=== PATIENT | female | born 1970 | race Caucasian/White ===

== ENCOUNTER 2023-11-02 15:31 | Emergency (ER) | payer OTHER ==
[2023-11-02] MEDS ORDERED: INSULIN REGULAR (HUMAN) 100 UNIT/ML ONE ×2 (15:54→18:19)
[2023-11-02] MEDS ORDERED: ONDANSETRON 4 MG/2 ML VIAL ONE (15:54)
[2023-11-02] MEDS ORDERED: FAMOTIDINE 20 MG/2 ML VIAL IV ONE (15:55)
[2023-11-02] MEDS ORDERED: NA CHLORIDE 0.9% 1,000 ML ONE ×2 (15:55→18:20)
[2023-11-02 16:10] LABS: Absolute Basophils 0.1 K/uL (0-0.5); Absolute Eosinophils 0.1 K/uL (0-0.5); Absolute Lymphocytes (CBC) 1.6 K/uL (0.7-4.9); Absolute Monocytes 0.2 K/uL (0.1-1.3); Absolute Neutrophil 3.8 K/uL (1.8-8.0); Basophils % 1.6 % (0-1.3); Eosinophils % 2.4 % (0-4.4); Hematocrit 42.5 % (36.0-45.0); Hemoglobin 13.8 g/dL (12.0-15.0); Lymphocytes % 26.9 % (15.3-44.8); MCH 27.4 pg (27.0-35.0); MCHC 32.4 g/dL (32.0-36.0); MCV 84.7 fL (80-100); MPV 7.7 fL (7.6-11.3); Monocytes % 3.9 % (3.3-12.3); Neutrophils % 65.2 % (41.7-73.7); Nucleated Red Blood Cells % 0.1 % (0-0); Platelets 283 thou/uL (152-406); RBC Red Blood Cell Count 5.02 M/uL (3.86-4.86); Red Cell Distribution Width 14.3 % (12.1-15.2)
[2023-11-02 16:48] LABS: Blood Morphology Comment NOT SEEN (NOT SEEN); Platelet Estimate ADEQ; White Blood Cell Scan OK (OK)
[2023-11-02 17:02] LABS: ALT/SGPT 23 U/L (13-56); Albumin 3.5 g/dL (3.4-5.0); Albumin/Globulin Ratio 0.8 (1.1-1.8); Alkaline Phosphatase 94 U/L (45-117); Anion Gap 10.1 mEq/L (5.0-15.0); BUN Blood Urea Nitrogen 19 mg/dL (7-18); Bicarbonate 26 mEq/L (21-32); Bilirubin Total 0.3 mg/dL (0.2-1.0); Globulin 4.6 g/dL (2.3-3.5); Glomerular Filtration Rate 60 ml/min (=/>90); Magnesium 2.5 mg/dL (1.6-2.4); Potassium 4.1 mEq/L (3.5-5.1); Protein, Total 8.1 g/dL (6.4-8.2); Sodium Level 131 mEq/L (136-145)
[2023-11-02 17:03] LABS: AST/SGOT < 10 U/L (15-37); Bilirubin Direct < 0.2 mg/dL (0-0.2); Bilirubin Indirect, Calculated 0.1 mg/dL (0.2-0.8); Troponin High Sensitivity < 3.0 pg/mL (<58.9)
[2023-11-02 17:04] LABS: Glucose Level 638 mg/dL (74-106)
[2023-11-02] MEDS ORDERED: POTASSIUM 25 MEQ EFFERV TAB ONE (18:19)
--- NOTE | 2023-11-02 20:37 | ER ---
Nurse's Notes [facility] Name: Rachel Saldaña Age: 53 yrs Sex: Female : 1970 Arrival Date: 11/02/2023 Time: 15:31 Bed 14 Private MD: Diagnosis: Diabetes mellitus due to underlying condition with hyperglycemia;Diarrhea, unspecified;Nausea Presentation: 11/01 15:34 Chief complaint: EMS states: N/V, diarrhea, and fatigue x2 days. Glucose readings for rs5 EMS read "high", Glucometer max out at 600. Coronavirus screen: At this time, the client does not indicate any symptoms associated with coronavirus-19. Ebola Screen: No symptoms or risks identified at this time. Initial Sepsis Screen: Does the patient meet any 2 criteria? No. Patient's initial sepsis screen is negative. Does the patient have a suspected source of infection? No. Patient's initial sepsis screen is negative. Risk Assessment: Do you want to hurt yourself or someone else? Patient reports no desire to harm self or others. Onset of symptoms was November 02, 2023. 15:34 Method Of Arrival: EMS: [facility] rs5 15:34 Acuity: JESSICA 3 rs5 Historical: - Allergies: 15:36 Augmentin; rs5 15:36 Narcan; rs5 - PMHx: 15:36 Diabetes mellitus; Gastroesophageal reflux disease; Hepatitis; rs5 - PSHx: 15:36 right toe amputation; rs5 - Immunization history:: Adult Immunizations up to date. - Infectious Disease History:: Denies. - Social history:: Smoking status: Patient denies any tobacco usage or history of. Screenin:34 [facility] ED Fall Risk Assessment (Adult) History of falling in the last 3 months, rs5 including since admission No falls in past 3 months (0 pts) Confusion or Disorientation No (0 pts) Intoxicated or Sedated No (0 pts) Impaired Gait Yes (1 pt) Mobility Assist Device Used Yes (1 pt) Altered Elimination No (0 pt) Score/Fall Risk Level 0 - 2 = Low Risk Oriented to surroundings, Maintained a safe environment. Abuse screen: Denies threats or abuse. Nutritional screening: No deficits noted. Tuberculosis screening: No symptoms or risk factors identified. Assessment: 15:48 General: Appears in no apparent distress. Behavior is calm, cooperative. Pain: al5 Complains of pain in abdomen, throat Pain currently is 4 out of 10 on a pain scale. Neuro: Level of Consciousness is awake, alert, obeys commands, Oriented to person, place, time, situation. Cardiovascular: Capillary refill Patient's skin is warm and dry. Respiratory: Airway is patent Trachea midline Respiratory effort is even, unlabored, Respiratory pattern is regular, symmetrical. GI: Abdomen is round non-distended. GI: Reports indigestion, Pain is 4 out of 10 on a pain scale. fatigue x2 days. : No deficits noted. No signs and/or symptoms were reported regarding the genitourinary system. EENT: No deficits noted. No signs and/or symptoms were reported regarding the EENT system. Derm: Skin is intact, Skin is pink, warm \\T\\ dry. normal, Skin temperature is warm. 16:30 Reassessment: Patient appears in no apparent distress at this time. No changes from al5 previously documented assessment. Patient and/or family updated on plan of care and expected duration. Pain level reassessed. Patient is alert, oriented x 3, equal unlabored respirations, skin warm/dry/pink. 17:37 Reassessment: Patient appears in no apparent distress at this time. No changes from al5 previously documented assessment. Patient and/or family updated on plan of care and expected duration. Pain level reassessed. Patient is alert, oriented x 3, equal unlabored respirations, skin warm/dry/pink. 19:08 Reassessment: Patient appears in no apparent distress at this time. Patient and/or jb4 family updated on plan of care and expected duration. Pain level reassessed. Patient is alert, oriented x 3, equal unlabored respirations, skin warm/dry/pink. 20:00 Reassessment: Patient appears in no apparent distress at this time. Patient and/or jb4 family updated on plan of care and expected duration. Pain level reassessed. Patient is alert, oriented x 3, equal unlabored respirations, skin warm/dry/pink. 20:59 Reassessment: Patient appears in no apparent distress at this time. Patient and/or jb4 family updated on plan of care and expected duration. Pain level reassessed. Patient is alert, oriented x 3, equal unlabored respirations, skin warm/dry/pink. Vital Signs: 15:30 BP 154 / 110; Pulse 71; Resp 18; Temp 98.1; Pulse Ox 98% on R/A; Weight 99.79 kg; al5 Height 5 ft. 3 in. ; Pain 4/10; 15:34 BP 158 / 78; Pulse 71; Resp 17; Pulse Ox 99% on R/A; rs5 16:30 BP 138 / 107; Pulse 68; Resp 16; Pulse Ox 98% on R/A; al5 17:00 BP 143 / 90; Pulse 64; Resp 16; Pulse Ox 100% on R/A; al5 17:30 BP 94 / 73; Pulse 72; Resp 16; Pulse Ox 100% on R/A; al5 19:00 BP 134 / 97; Pulse 63; Resp 16; Pulse Ox 100% on R/A; jb4 15:30 Body Mass Index 38.97 (99.79 kg, 160.02 cm) al5 15:30 Pain Scale: Adult al5 ED Course: 15:34 Patient arrived in ED. rs5 15:34 Salomon Pritchard MD is Attending Physician. rt 15:34 Patient has correct armband on for positive identification. Bed in low position. Call rs5 light in reach. Side rails up X2. 15:36 Ellis Garcia PA is PHCP. rt 15:36 Triage completed. rs5 15:37 Curtis Harris MD is Attending Physician. cp 15:46 Mariam Constantino, DIANELYS is Primary Nurse. al5 15:50 Arm band placed on left wrist. Patient placed in the treatment room, in view of staff al5 members. 15:50 No provider procedures requiring assistance completed. al5 16:03 Missed attempt(s): 20 gauge in right forearm. Bleeding controlled, band aid applied, ll1 catheter tip intact. 16:03 Missed attempt(s): 20 gauge in left antecubital area. Bleeding controlled, band aid ll1 applied, catheter tip intact. 19:08 Bruce Machado, RN is Primary Nurse. jb4 20:59 Provided Education on: discharge instructions.. jb4 20:59 IV discontinued, intact, bleeding controlled, No redness/swelling at site. Pressure jb4 dressing applied. Administered Medications: 16:45 Drug: NS 0.9% IV 1000 ml IV at 1 bolus Per protocol; 1000 mL bolus Route: IV; Rate: 1 al5 bolus; Site: left forearm; 16:45 Drug: Ondansetron IVP 4 mg IVP once; over 2 minutes Route: IVP; Site: left forearm; al5 16:45 Drug: Famotidine IVP 20 mg IVP once; dilute with 10 mL 0.9% NaCl; give over 2 minutes al5 Route: IVP; Site: left forearm; 16:46 Drug: Insulin Regular Human IVP 10 units IVP once; if blood glucose greater than 300 al5 {Co-Signature: heather (Tyrone Rowland RN).} Route: IVP; Site: left forearm; 18:26 Drug: Insulin Regular Human IVP 10 units IVP once {Co-Signature: heather (Tyrone Rowland RN).} Route: IVP; Site: left forearm; 18:28 Drug: NS 0.9% IV 1000 ml IV at 1 bolus Per protocol; 1000 mL bolus Route: IV; Rate: 1 al5 bolus; Site: left forearm; 18:29 Drug: Potassium PO Effervescent Tablet 50 mEq PO once; dissolve in 4 ounces of water or al5 juice Route: PO; 20:59 Drug: metFORMIN PO 1000 mg PO once; with meal or snack Route: PO; jb4 Medication: 15:38 VIS not applicable for this client. rs5 Point of Care Testing: Blood Glucose: 19:52 Blood Glucose: 249 mg/dL; jb4 Ranges: Outcome: 20:36 Discharge ordered by . cp 20:59 Discharged to home ambulatory, jb4 20:59 Condition: stable 20:59 Discharge instructions given to patient, Instructed on discharge instructions, follow up and referral plans. medication usage, Demonstrated understanding of instructions, follow-up care, medications, Prescriptions given X 6 21:01 Patient left the ED. jb4 Signatures: Ellis Garcia PA PA cp Bryson, James RN RN jb4 Ben Ro RN RN ll1 Salomon Pritchard MD MD rt Tyrone Rowland RN RN rs5 Mariam Constantino RN RN al5 Tyrone Rowland RN rs5
--- NOTE | 2023-11-02 20:37 | EDPHYS ---
Physician Documentation [facility] Name: Rachel Saldaña Age: 53 yrs Sex: Female : 1970 Arrival Date: 11/02/2023 Time: 15:31 Bed 14 Private MD: ED Physician Curtis Harris HPI: 11/01 15:40 This 53 yrs old Female presents to ER via EMS with complaints of Nausea/Vomiting, cp Abdominal Cramping. 15:40 The patient presents to the emergency department with nausea, vomiting, that is cp intermittent, diarrhea, that is intermittent. Onset: The symptoms/episode began/occurred 2 day(s) ago. Possible causes: elevated blood glucose level. patient reports recent move to [facility]. ran out of prescribed Metformin and insulin about 1 week ago. Associated signs and symptoms: Pertinent negatives: fever, chest pain. Severity of symptoms: in the emergency department the symptoms are unchanged despite home interventions. Historical: - Allergies: 15:36 Augmentin; rs5 15:36 Narcan; rs5 - PMHx: 15:36 Diabetes mellitus; Gastroesophageal reflux disease; Hepatitis; rs5 - PSHx: 15:36 right toe amputation; rs5 - Immunization history:: Adult Immunizations up to date. - Infectious Disease History:: Denies. - Social history:: Smoking status: Patient denies any tobacco usage or history of. ROS: 15:45 Constitutional: Negative for body aches, chills, fever, cp 15:45 Eyes: Negative for injury, pain, redness, and discharge, cp 15:45 ENT: Negative for drainage from ear(s), ear pain, sore throat, difficulty swallowing, difficulty handling secretions, 15:45 Cardiovascular: Negative for chest pain, 15:45 Respiratory: Negative for cough, shortness of breath, wheezing, 15:45 Abdomen/GI: Positive for nausea and vomiting, diarrhea, Negative for active vomiting, 15:45 : Negative for urinary symptoms, 15:45 Skin: Negative for cellulitis, rash, 15:45 All other systems are negative, Exam: 15:50 Constitutional: The patient appears in no acute distress, alert, awake, cp non-diaphoretic, non-toxic, well developed, well nourished, obese, 15:50 Head/Face: Normocephalic, atraumatic. cp 15:50 Eyes: Periorbital structures: appear normal, Conjunctiva: normal, no exudate, no injection, Sclera: no appreciated abnormality, Lids and lashes: appear normal, bilaterally, 15:50 ENT: External ear(s): are unremarkable, Nose: is normal, Mouth: Lips: moist, Oral mucosa: pink and intact, moist, Posterior pharynx: is normal, airway is patent, no erythema, no exudate, 15:50 Chest/axilla: Inspection: normal, 15:50 Cardiovascular: Rate: normal, Rhythm: regular, Edema: is not appreciated, JVD: is not appreciated, 15:50 Respiratory: the patient does not display signs of respiratory distress, Respirations: normal, no use of accessory muscles, no retractions, labored breathing, is not present, Breath sounds: are clear throughout, no decreased breath sounds, no stridor, no wheezing, 15:50 Abdomen/GI: Inspection: abdomen appears normal, Bowel sounds: active, all quadrants, Palpation: abdomen is soft and non-tender, in all quadrants, 15:50 Back: CVA tenderness, is absent, 15:50 Neuro: Orientation: to person, place \T\ time. Mentation: is normal, Motor: moves all fours, strength is normal, Sensation: is normal, 16:33 ECG was reviewed by the Attending Physician. Vital Signs: 15:30 BP 154 / 110; Pulse 71; Resp 18; Temp 98.1; Pulse Ox 98% on R/A; Weight 99.79 kg; al5 Height 5 ft. 3 in. ; Pain 4/10; 15:34 BP 158 / 78; Pulse 71; Resp 17; Pulse Ox 99% on R/A; rs5 16:30 BP 138 / 107; Pulse 68; Resp 16; Pulse Ox 98% on R/A; al5 17:00 BP 143 / 90; Pulse 64; Resp 16; Pulse Ox 100% on R/A; al5 17:30 BP 94 / 73; Pulse 72; Resp 16; Pulse Ox 100% on R/A; al5 19:00 BP 134 / 97; Pulse 63; Resp 16; Pulse Ox 100% on R/A; jb4 15:30 Body Mass Index 38.97 (99.79 kg, 160.02 cm) al5 15:30 Pain Scale: Adult al5 MDM: 15:34 Patient medically screened. rt 20:35 Data reviewed: vital signs, nurses notes, lab test result(s), and as a result, I will cp discharge patient. 20:35 Differential diagnosis: Nonspecific abd pain, gastritis, viral gastroenteritis, cp gastroenteritis, DKA, uti. I considered the following discharge prescriptions or medication management in the emergency department Medications were administered in the Emergency Department. See MAR. Independent interpretation of the following test(s) in the Emergency Department EKG: See my EKG interpretation above. Counseling: I had a detailed discussion with the patient and/or guardian regarding the historical points, exam findings, and any diagnostic results supporting the discharge/admit diagnosis, lab results, the need for outpatient follow up, for definitive care, a family practitioner, to return to the emergency department if symptoms worsen or persist or if there are any questions or concerns that arise at home. Response to treatment: the patient's symptoms have markedly improved after treatment, and as a result, I will discharge patient. 11/01 15:39 Order name: Basic Metabolic Panel; Complete Time: 18:01 11/01 20:05 Interpretation: Normal except: NA 131; GLUC 638; BUN 19; CRE 1.12; GFR 60. 11/01 15:39 Order name: CBC with Diff; Complete Time: 18:01 11/01 15:39 Order name: LFT's; Complete Time: 18:01 11/01 15:39 Order name: Magnesium; Complete Time: 18:01 11/01 15:39 Order name: Troponin HS; Complete Time: 18:01 11/01 15:54 Order name: Glucose, Ancillary Testing; Complete Time: 18:01 EDMN 11/01 16:17 Order name: CBC Smear Scan; Complete Time: 18:01 EDMN 11/01 17:43 Order name: Glucose, Ancillary Testing; Complete Time: 18:01 EDMS 11/01 20:03 Order name: Glucose, Ancillary Testing; Complete Time: 20:04 EDMN 11/01 20:04 Interpretation: Reviewed. 11/01 15:39 Order name: Cardiac monitoring; Complete Time: 16:35 11/01 15:39 Order name: EKG - Nurse/Tech; Complete Time: 15:47 11/01 15:39 Order name: IV Saline Lock; Complete Time: 16:35 11/01 15:39 Order name: Labs collected and sent; Complete Time: 16:03 cp 11/01 15:39 Order name: O2 Per Protocol; Complete Time: 15:47 cp 11/01 15:39 Order name: O2 Sat Monitoring; Complete Time: 15:47 cp 11/01 15:39 Order name: Accucheck Blood Glucose; Complete Time: 15:47 cp 11/01 16:15 Order name: Labs - recollect needed: GREEN TOP ONLY; Complete Time: 17:10 hb 11/01 19:44 Order name: Accucheck Blood Glucose; Complete Time: 20:01 cp 11/01 20:05 Order name: PO challenge; Complete Time: 20:07 cp EC:33 Rate is 56 beats/min. Rhythm is regular. NM interval is normal. QRS interval is normal. cp QT interval is normal. T waves are Inverted in leads III, aVR. Interpreted by me. Reviewed by me. Administered Medications: 16:45 Drug: NS 0.9% IV 1000 ml IV at 1 bolus Per protocol; 1000 mL bolus Route: IV; Rate: 1 al5 bolus; Site: left forearm; 16:45 Drug: Ondansetron IVP 4 mg IVP once; over 2 minutes Route: IVP; Site: left forearm; al5 16:45 Drug: Famotidine IVP 20 mg IVP once; dilute with 10 mL 0.9% NaCl; give over 2 minutes al5 Route: IVP; Site: left forearm; 16:46 Drug: Insulin Regular Human IVP 10 units IVP once; if blood glucose greater than 300 al5 {Co-Signature: rs5 (Tyrone Rowland RN).} Route: IVP; Site: left forearm; 18:26 Drug: Insulin Regular Human IVP 10 units IVP once {Co-Signature: rs5 (Tyrone Rowland RN).} Route: IVP; Site: left forearm; 18:28 Drug: NS 0.9% IV 1000 ml IV at 1 bolus Per protocol; 1000 mL bolus Route: IV; Rate: 1 al5 bolus; Site: left forearm; 18:29 Drug: Potassium PO Effervescent Tablet 50 mEq PO once; dissolve in 4 ounces of water or al5 juice Route: PO; 20:59 Drug: metFORMIN PO 1000 mg PO once; with meal or snack Route: PO; jb4 Point of Care Testing: Blood Glucose: 19:52 Blood Glucose: 249 mg/dL; jb4 Ranges: Critical Glucose Levels:Adult <50 mg/dl or >400 mg/dl <40 mg/dl or >180 mg/dl Disposition: 11/02 07:03 Co-signature as Attending Physician, Curtis Harris MD I reviewed the patient's care rn provided by the Advanced Practice Provider and agree with the diagnosis and treatment plan. Disposition Summary: 11/02/23 20:36 Discharge Ordered Notes: Location: Home cp Problem: chronic cp Symptoms: have improved cp Condition: Stable cp Diagnosis - Diabetes mellitus due to underlying condition with hyperglycemia cp - Diarrhea, unspecified cp - Nausea cp Followup: cp - With: Private Physician - When: 2 - 3 days - Reason: Recheck today's complaints Discharge Instructions: - Discharge Summary Sheet cp - Food Choices to Help Relieve Diarrhea, Adult cp - Diarrhea, Adult cp - Hyperglycemia cp - Nausea, Adult cp - Daily Diabetes Mellitus Record cp - Blood Glucose Monitoring, Adult cp - Diabetes Mellitus and Nutrition, Adult cp Forms: - Medication Reconciliation Form cp - Antibiotic Education cp - Prescription Opioid Use cp - Patient Portal Instructions cp - Leadership Thank You Letter cp Prescriptions: - Lantus U-100 Insulin 100 unit/mL Subcutaneous solution - inject 40 unit SUBCUTANEOUS route daily; 10 milliliter; Refills: 0, Product cp Selection Permitted - GLUCOMETER - use 1 application NOT APPLICABLE route after meals and before bedtime; 1 unit; cp Refills: 0, Product Selection Permitted - GLUCOMETER TEST STRIPS - use 1 application NOT APPLICABLE route as directed; 1 Pack; Refills: 0, Product cp Selection Permitted - DIABETIC SYRINGES - inject 1 application SUBCUTANEOUS route as directed; 100 unit; Refills: 0, cp Product Selection Permitted - Protonix 40 mg Oral Tablet - take 1 tablet ORAL route once daily; 30 tablet; Refills: 0, Product Selection cp Permitted - Metformin 1,000 mg Oral tablet - take 1 tablet ORAL route every 12 hours with morning and evening meals; 60 cp tablet; Refills: 0, Product Selection Permitted Signatures: Dispatcher [employer] EDMS Curtis Harris MD MD rn Page, Corey, PA PA cp Snow Velazquez RN RN Bruce Machado RN RN jb4 Salomon Pritchard MD MD rt Tyrone Rowland RN RN rs5 Mariam Constantino RN RN al5 Tyrone Rowland RN rs5 Corrections: (The following items were deleted from the chart) 11/01 15:39 15:39 BASIC METABOLIC PANEL+C.LAB.BRZ ordered. EDMS EDMS 15:39 15:39 CBC+H.LAB.BRZ ordered. EDMS EDMS 15:39 15:39 HEPATIC FUNCTION+C.LAB.BRZ ordered. EDMS EDMS 15:39 15:39 MAGNESIUM+C.LAB.BRZ ordered. EDMS EDMS 15:39 15:39 Troponin High Sensitivity+C.LAB.BRZ ordered. EDMS EDMS
[2023-11-02] MEDS ORDERED: METFORMIN HCL 500 MG TAB ONE (20:46)
[2023-11-02 21:21] VITALS: BP 134/97; O2SAT 100
--- NOTE | 2023-11-04 10:32 | EKG ---
Test Date: 2023-11-02 Test Time: 16:25:32 Publicist: ADALID MEASUREMENT RESULTS: Intervals: Rate: 56 CA: 136 QRSD: 82 QT: 472 QTc: 455 Benson: P: 36 CA: 136 QRS: 17 T: 2 INTERPRETIVE STATEMENTS: Sinus bradycardia with sinus arrhythmia Otherwise normal ECG No previous ECG available for comparison Electronically Signed On 11-04-23 10:31:16 CDT by Keegan Rain
== END 2023-11-02 21:01 | disposition home or self-care (01) ==
LOC: ER 15:31
DX: E11.65 Type 2 diabetes mellitus with hyperglycemia (principal); R19.7 Diarrhea, unspecified
CPT/HCPCS: 93005; 85025; 80048; 36415; 83735; 82947 ×3; 80076; 84484; 96375; 96374; 99284; J2405; J7030 ×2

== ENCOUNTER 2024-03-12 00:58 | Emergency (ER) | payer OTHER ==
--- OUTSIDE RECORDS SUMMARY | 2024-03-12 01:03 | XMS REPORT | Continuity of Care Document ---
Author Name Unknown Address [address] [facility] [address] [place] [address] [facility] thconnect Address [address] [facility] [place] [address] Care Team Providers Care Manager Requirements Name Role Phone Pcp, Patient Does Not Have A Primary Care Physic kayla Dany Kerr MD Attending Clinician [phone] Tuan Obrien Attending Clinician UnavailMariela Fisher DO Attending Clinician [phone] Sayra Giordano DO Attending Clinician [phone] Ismael Olivo MD Attending Clinician [phone] Kwadwo Diop MD Attending Clinician [phone] Melody Loaiza Attending Clinician Unavailable MARY JANE SKINNER Attending Clinician Mary Jane Gilbert MD Attending Clinician [phone] Physician, No Primary or Family Admitting Clinic kayla Unavailable Ismael Olivo MD Admitting Clinician [phone] Melody Loaiza Admitting Clinician Unavailable Payers Payer Name Policy Type Policy Number Effective Date Expirati on Date Source Problems Condition Name Condition Details Condition Category Status Onset Date Resolution Date Last Treatment Date Treating Clinician Comments Source Left breast abscess Left breast abscess Disease Active 09-03 00:00: 00 [facility] Homeless Homeless Disease Active 09-03 00:00: 00 [facility] Medically noncomplia nt Medically noncomplia nt Disease Active 09-03 00:00: 00 [facility] Diabetes mellitus of other type without complicati on, unspecifie d whether terminal clerk insulin use Diabetes mellitus of other type without complicati on, unspecifie d whether terminal clerk insulin use Disease Active 09-03 00:00: 00 [facility] Mastitis Mastitis Disease Active 09-03 00:00: 00 [facility] Allergies, Adverse Reactions, Alerts Allergy Name Allergy Type Status Severity Reaction(s) Onset Date Inactive Date Treating Clinician Comments Source onion FA Active [facility] 08-[facility] clavulan ic acid DA Active HI HIVES 07-24 00:00: 00 [facility] amoxicil yessy DA Active HI HIVES 3 00:00: 00 [facility] AMOXICIL YESSY-POT CLAVULAN ATE DRUG Active Hives 2022-04 0- 00:00: 00 [facility] Amoxicil yessy-Pot Clavulan ate Propensi ty to adverse reaction s Active Hives 2022-04 0-22 00:00: 00 [facility] Social History Social Habit Start Date Stop Date Quantity Comments [facility] of [facility] use Cigarette Smoker [facility] Alcoholic beverage intake 2023-09-04 00:00:00 2023-09-04 00:00:00 Lifetime non-drinker (finding) [facility] History of Social function 2023-09-04 00:00:00 2023-09-04 00:00:00 [facility] Sex assigned at 1970 00:00:00 1970 00:00:00 [facility] Smoking Status Start Date Stop Date Source Tobacco smoking consumption unknown [facility] Occasional tobacco smoker 2023-09-04 00:00:00 [facility] Medications Ordered Medication Name Filled Medication Name Start Date Stop Date Current Medication? Ordering Clinician Indication Dosage Frequency Signature (SIG) Comments Components Source insulin glargine (LANTUS U-100) injection 5 Units 09-05 02:00: 00 Yes 5U [facility] miconazole nitrate (DESENEX) 2 % powder 09-04 16:00: 00 Yes Topical, BID, First dose on Sun09/05/23 at 1100, Until Discontinu ed, Routine [facility] glucagon (GLUCAGEN DIAGNOSTIC KIT) injection 1 mg 09-04 15:44: 02 Yes 1mg [facility] dextrose 50 % in water (D50W) injection 25 mL 09-04 15:44: 02 Yes 25mL [facility] famotidine (PEPCID) 40 mg tablet 09-04 14:19: 59 Yes 40mg Take 1 tablet by mouth in the morning. [facility] polyethylen e glycol 3350 powder 17 g 09-04 14:00: 00 Yes 17g 17 g, Oral, BID, First dose (after last modificati on) on Sun09/05/23 at 0900, Until Discontinu ed, Routine [facility] enoxaparin (LOVENOX) injection 40 mg 09-04 14:00: 00 Yes 40mg [facility] lanolin alcohol-mo- w.pet-ceres (EUCERIN) cream 09-04 13:55: 46 Yes Topical, PRN, Starting on Sun09/05/23 at 0855, Until Discontinu ed, Routine, Dermatitis /Rash, Itching [facility] sennosides (SENOKOT) tablet 8.6 mg 09-04 13:00: 00 Yes 8.6mg 8.6 mg, Oral, BID, First dose on Sun09/05/23 at 0800, Until Discontinu ed, [facility] - Lispro (HumaLOG) 09-04 11:45: 00 Yes Subcutaneo us, Q4H, First dose (after last modificati on) on Sun09/05/23 at 0645, Until Discontinu ed, Routine [facility] Sliding Scale Insulin - Lispro (HumaLOG) 09-04 09:00: 00 09-04 11:30 :49 No Subcutaneo us, Q4H, First dose (after last modificati on) on Sun09/05/23 at 0400, Until Discontinu ed, Routine [facility] polyethylen e glycol 3350 powder 17 g 09-04 05:45: 00 09-04 13:57 :27 No 17g 17 g, Oral, DAILY, First dose (after last modificati on) on Sun09/05/23 at 0045, Until Discontinu ed, Routine [facility] lactated ringers IV infusion 1,000 mL 09-04 05:45: 00 09-04 07:38 :29 No 1000mL at 500 mL/hr, 1,000 mL, Intravenou s, ONCE, 1 dose, On Sun09/05/23 at 0045, Routine [facility] pantoprazol e (PROTONIX) EC tablet 40 mg 09-04 05:30: 00 Yes 40mg 40 mg, Oral, DAILY, First dose on Sun09/05/23 at 0030, Until Discontinu ed, Routine [facility] insulin glargine (LANTUS U-100) injection 8 Units 09-04 04:45: 00 Yes 8U 8 Units, Subcutaneo us, QHS, First dose (after last modificati on) on Sun09/04/23 at 2345, Until Discontinu ed, Routine [facility] acetaminoph en-codeine (TYLENOL #3) 300-30 mg tablet 1 tablet 09-04 03:31: 27 09-06 03:30 :27 No 1{tbl} 1 tablet, Oral, Q6HPRN, Starting on Sun09/04/23 at 2231, Until Sun09/06/23 at 2230, Routine, Pain (scale 4-6) [facility] acetaminoph en (TYLENOL) tablet 650 mg 09-04 03:31: 14 Yes 650mg 650 mg, Oral, Q6HPRN, Starting on Sun09/04/23 at 2231, Until Discontinu ed, Routine, Pain (scale 1-3) [facility] vancom[facility] (VANCOCIN) 1,000 mg in NaCl 0.9% (NS) 250 mL VIAL-MATE IV piggyback 09-04 03:00: 00 09-04 04:15 :00 No 1000mg 1,000 mg, IV Piggyback, ONCE, 1 dose, On Sun09/04/23 at 2200, Administer over 60 Minutes, 250 mL, Reason for Anti-Infec tive: Empiric Therapy for Suspected Infection, Empiric Therapy Site: Skin / Soft tissue, Duration of therapy: Once (ED) [facility] famotidine (PEPCID AC) tablet 20 mg 09-04 02:51: 00 09-04 03:10 :00 No 20mg 20 mg, Oral, ONCE NOW, 1 dose, On Sun09/04/23 at 2200, BAUTISTA [facility] Blood-Gluco se Meter (ACCU-CHEK GUIDE GLUCOSE METER) [facility] 09-04 00:00: 00 Yes [id number] 9109 Use as directed [facility] lancets 33 gauge Misc 09-04 00:00: 00 Yes [id number] 9109 Use as directed [facility] blood sugar diagnostic (ACCU-CHEK GUIDE TEST STRIPS) strip 09-04 00:00: 00 Yes [id number] 9109 Use as directed [facility] Insulin [place], Disposable, (BD INSULIN PEN NEEDLE UF) 31 gauge x 5/16" Ndle 09-04 00:00: 00 Yes [id number] 9109 Use as directed [facility] Insulin Glargine 100 unit/mL (3 mL) injection 09-04 00:00: 00 Yes [id number] 9109 5U inject 5 Units under the skin every morning. [facility] clindamycin 300 mg capsule 09-04 00:00: 00 09-12 04:59 :00 No [id number] 300mg Take 1 capsule by mouth 4 (four) times daily for 7 days. [facility] insulin detemir U-100 (LEVEMIR U-100 INSULIN) 100 unit/mL injection 09-04 00:00: 00 09-04 00:00 :00 No [id number] 6U inject 6 Units under the skin at bedtime for 30 days. [facility] maalox:diph enhydrAMINE :lidocaine 2 % viscous 1:1:1 (FIRST-MOUT HWASH BLM) oral suspension 15 mL 09-03 20:45: 00 09-03 19:54 :00 No 15mL 15 mL, Oral, ONCE, 1 dose, On Sun09/04/23 at 1545, Routine [facility] metFORMIN (GLUCOPHAGE ) tablet 500 mg 09-03 18:30: 00 09-03 18:30 :00 No 500mg 500 mg, Oral, ONCE, 1 dose, On Sun09/04/23 at 1330[facility] (LANTUS U-100) injection 15 Units 2022-04 18:30: 00 02-18 17:41 :00 No 15U 15 Units, Subcutaneo us, ONCE, 1 dose, On 02/18/23 at 1330, Routine [facility] insulin regular human (HUMULIN R) injection 10 Units 2022-04 18:30: 00 02-18 17:40 :00 No 10U 10 Units, Subcutaneo us, ONCE, 1 dose, On 02/18/23 at 1330, Routine
Indicatio n for insulin: Hyperglyce heavenly [facility] acetaminoph en (TYLENOL) tablet 650 mg 2022-04 17:45: 00 02-18 17:44 :00 No 650mg 650 mg, Oral, ONCE, 1 dose, On 02/18/23 at 1245, BAUTISTA [facility] dextrose 10% (D10W) bolus infusion 250 mL 2022-04 17:31: 56 Yes 250mL 250 mL, IV Infusion, PRN - SEE INSTRUCTIO NS, Administer over 60 Minutes, Other, If blood glucose is < or = 70 mg/dL and patient is unable to swallow or has mental status changes, Starting on 02/18/23 at 1231
If blood glucose is < or = 70 mg/dL and patient is unable to swallow or has mental status changes (Give glucagon order if patient needs fluid restrictio n): IF IV access available: Dextrose 10%. 1. 125 mL (? bag) of D10W IV infusion - equivalent to 12.5 g dextrose 2. Blood glucose - draw blood glucose 15 minutes after D10W Administra tion. 3. If blood glucose is < 80 mg/dL, repeat.
[facility] glucagon (GLUCAGEN DIAGNOSTIC KIT) injection 1 mg 2022-04 17:31: 52 Yes 1mg 1 mg, Intramuscu lar, PRN, Starting on Sun02/18/23 at 1231, Until Discontinu ed, BAUTISTA, Blood Glucose < or = 70 mg/dL and patient is NPO, unable to swallow or has mental changes. [facility] insulin regular human (HUMULIN R) injection 15 Units 2022-04 16:45: 00 02-18 16:07 :00 No 15U 15 Units, Subcutaneo us, ONCE NOW, 1 dose, On Sun02/18/23 at 1145, Routine
Indicatio n for insulin: Hyperglyce heavenly [facility] NaCl 0.9% (NS) bolus infusion 1,000 mL 2022-04 16:30: 00 02-18 17:54 :00 No 1000mL at 999 mL/hr, 1,000 mL, IV Piggyback, ONCE, 1 dose, On Sun02/18/23 at 1130, STAT [facility] metFORMIN 500 mg tablet 2022-04 00:00: 00 Yes [id number] 1000mg Take 2 tablets by mouth in the morning and 2 tablets in the evening. Take with meals. [facility] cefdinir 300 mg capsule 2022-04 0 00:00: 00 03-01 04:59 :00 No [id number] 300mg Take 1 capsule by mouth in the morning and 1 capsule in the evening. Do all this for 10 days. [facility] Vital Signs Vital Name Observation Time Observation Value Comments S ource Systolic blood pressure 2023-09-16 23:57:00 133 mm[Hg] [facility] Diastolic blood pressure 2023-09-16 23:57:00 57 mm[Hg] [facility] Heart rate 2023-09-16 23:57:00 82 /min [facility] Body temperature 2023-09-16 23:57:00 36.78 Rosalie [facility] Respiratory rate 2023-09-16 23:57:00 16 /min [facility] Body height 2023-09-16 23:57:00 157.5 cm [facility] Body weight 2023-09-16 23:57:00 90.719 kg [facility] BMI 2023-09-16 23:57:00 36.58 kg/m2 [facility] Oxygen saturation in Arterial blood by Pulse oximetry 2023-09-16 23:57:00 96 /min [facility] Systolic blood pressure 2023-09-05 16:22:00 121 mm[Hg] [facility] Diastolic blood pressure 2023-09-05 16:22:00 83 mm[Hg] [facility] Heart rate 2023-09-05 16:22:00 77 /min [facility] Body temperature 2023-09-05 16:22:00 36.5 Rosalie [facility] Respiratory rate 2023-09-05 16:22:00 20 /min [facility] Oxygen saturation in Arterial blood by Pulse oximetry 2023-09-05 16:22:00 98 /min [facility] Body height 2023-09-05 06:50:00 157.5 cm [facility] Body weight 2023-09-05 06:50:00 90.719 kg [facility] BMI 2023-09-05 06:50:00 36.58 kg/m2 [facility] Systolic blood pressure 2023-02-18 21:00:00 132 mm[Hg] [facility] Diastolic blood pressure 2023-02-18 21:00:00 89 mm[Hg] [facility] Heart rate 2023-02-18 21:00:00 71 /min [facility] Body temperature 2023-02-18 21:00:00 36.72 Rosalie [facility] Respiratory rate 2023-02-18 21:00:00 16 /min [facility] Oxygen saturation in Arterial blood by Pulse oximetry 2023-02-18 21:00:00 96 /min [facility] Body height 2023-02-18 14:36:00 160 cm [facility] Body weight 2023-02-18 14:36:00 100 kg [facility] BMI 2023-02-18 14:36:00 39.05 kg/m2 [facility] Procedures Procedure Date / Time Performed Performing Clinician Source POCT GLUCOSE (AUTOMATED) 2023-09-17 00:18:00 Alex Kerr [facility] POCT GLUCOSE (AUTOMATED) 2023-09-05 16:23:00 Ismael Olivo [facility] POCT GLUCOSE (AUTOMATED) 2023-09-05 12:51:00 Ismael Olivo [facility] POCT GLUCOSE (AUTOMATED) 2023-09-05 08:53:00 Ismael Olivo [facility] MRSA / MSSA SCREEN BY AMBAR LEIJA 2023-09-05 07:57:[address] [facility] BASIC METABOLIC PANEL (NA, K, CL, CO2, GLUCOSE, BUN, CREATININE, CA) 2023-09-05 07:57:[address] [facility] URINE DRUG (IMMUNOASSAY) - COMPREHENSIVE DRUG SCREEN 2023-09-05 03:16:[address] [facility] URINALYSIS 2023-09-05 03:16:00 Yeh, Ismael [facility] POCT GLUCOSE (AUTOMATED) 2023-09-05 03:06:00 Ismael Olivo [facility] BI ULTRASOUND BREAST COMPLETE LEFT 2023-09-04 20:35:00 Apoorva Abbott [facility] HIV 1/2 AG-AB WITH REFLEX 2023-09-04 16:45:[address] [facility] TROPONIN I 2023-09-04 16:45:[facility] (NA, K, CL, CO2, GLUCOSE, BUN, CREATININE, CA) 2023-09-04 16:45:00 Mariela Parsons [facility] LIPID PANEL (44547)(TOTAL CHOLESTEROL, TRIGLYCERIDES, HDL) 2023-09-04 16:45:[address] [facility] CBC WITH DIFF 2023-09-04 16:45:00 Mariela Parsons [facility] GLYCOSYLATED HEMOGLOBIN (A1C) 2023-09-04 16:45:[address] [facility] HEPATITIS B SURFACE ANTIBODY 2023-09-04 16:45:[address] [facility] HEPATITIS B SURFACE ANTIGEN 2023-09-04 16:45:[address] [facility] HCV ANTIBODY 2023-09-04 16:45:00 [facility]TIBODY (IGM & IGG) 2023-09-04 16:45:[address] [facility] POCT GLUCOSE(AGE >30DAYS) 2023-09-04 15:58:00 Mariela Parsons [facility] POCT GLUCOSE (AUTOMATED) 2023-09-04 15:57:00 Mariela Parsons [facility] POCT GLUCOSE (AUTOMATED) 2023-02-18 20:58:00 Nahomy Skinner [facility] POCT GLUCOSE (AUTOMATED) 2023-02-18 18:58:00 Nahomy Skinner [facility] POCT GLUCOSE (AUTOMATED) 2023-02-18 17:17:00 Nahomy Skinner [facility] BETA HYDROXY-BUTYRATE 2023-02-18 14:57:00 Annie [facility] COMP. METABOLIC PANEL (79439) 2023-02-18 14:57:00 Annie [facility] URINE DRUG (IMMUNOASSAY) - COMPREHENSIVE DRUG SCREEN 2023-02-18 14:57:00 Annie [facility] CBC WITH DIFF 2023-02-18 14:57:00 Annie [facility] URINALYSIS 2023-02-18 14:57:00 Annie [facility] EXTRA TUBE LT. BLUE 2023-02-18 14:57:00 Mary Jane [facility] EXTRA TUBE DK. GREEN 2023-02-18 14:57:00 Cale [facility] Encounters Start Date/Time End Date/Time Encounter Type Admission Type Attending [facility] Care Facility Care Department Encounter ID Source 2023-09-16 19:03:00 2023-09-16 19:03:00 Emergency Dany Kerr [facility] [id number] [facility] 2023-09-11 21:23:00 2023-09-12 06:04:00 Emergency EM Tuan Obrien [facility] [id number] 25 [facility] 2023-09-04 10:08:00 2023-09-05 14:19:00 Emergency Mariela Parsons, Sayra Olivo, Ismael Diop, [facility] [id number] [facility] 2023-08-07 12:51:00 2023-08-08 15:40:00 Inpatient EM Melody LoaizaMN [facility] [id number] [facility] 2023-07-26 13:25:00 2023-07-27 14:23:00 Inpatient EM Melody LoaizaMN [facility] [id number] [facility] 2023-07-25 22:37:00 2023-07-25 22:37:00 Outpatient Melody LoaizaCL [facility] [id number] [facility] 2023-02-18 09:35:00 2023-02-18 16:07:00 Emergency X MARY JANE SKINNER [facility] ERT [id number] [facility] 2023-02-18 09:35:00 2023-02-18 16:07:00 Emergency Mary Jane Skinner [facility] [id number] [facility] Results Test Description Test Time Test Comments Results Result Co mments Source [facility]:01:00* Test Item Value Reference Range Interpretation Comme nts GLUBED (test code = GLUBED) 362 mg/dL 70-110 H COMPREHENSIVE METABOLIC [id number] 01:06:00* Test Item Value Reference Range Interpretation Comme nts SODIUM (test code = NA) 136 mmol/l 134.0-147.0 N POTASSIUM (test code = K) 4.2 mmol/L 3.6-5.2 N CHLORIDE (test code = CL) 101 mmol/l 98.0-107.0 N CARBON DIOXIDE (test code = CO2) 24.9 mmol/l 21.0-33.0 N ANION GAP (test code = GAP) 14.3 0-20 N GLUCOSE (test code = GLU) 400 mg/dl 70.0-110.0 H BLOOD UREA NITROGEN (test code = BUN) 7 mg/dl 7.0-18.0 N GLOMERULAR FILTRATION RATE (test code = GFR) 75 mL/min The Glomerular Filtration Rate is a calculated parameterbased on serum Creatinine, patient age and sex. GFR valuesless than 60 mL/min/1.73 square meters are indicative ofChronic Kidney Disease. Values less than 15 mL/min/1.73square meters indicate Kidney failure. The calculation forGFR is based on the CKD-EPI (202) calculation. This formulais race indifferent and is the recommended formula for GFRby the National Kidney Foundation for Adults.The GFR will not calculate if the sex is unknown or if thepatient's age is <18 years. CREATININE (test code = CREAT) 0.93 mg/dL 0.60-1.30 N TOTAL PROTEIN (test code = PROT) 7.5 gm/dL 6.4-8.2 N ALBUMIN (test code = ALB) 2.9 gm/dl 3.2-4.7 L CALCIUM (test code = CA) 8.8 mg/dl 8.0-10.5 N BILIRUBIN TOTAL (test code = BILT) 0.4 mg/dl 0.0-1.0 N SGOT/AST (test code = AST) 14 Units/L 15-37 L SGPT/ALT (test code = ALT) 22 Units/L 12.0-78.0 N ALKALINE PHOSPHATASE TOTAL (test code = ALKP) 96 Units/L 50.0-136.0 N ESTIMATED CREAT CLEARANCE (test code = ECRCL) 57 mL/min >30 CBC W/AUTO [id number] 00:54:00* Test Item Value Reference Range Interpretation Comme nts WHITE BLOOD CELL (test code = WBC) 6.0 K/mm3 4.5-11.0 N RED BLOOD CELL (test code = RBC) 4.92 M/mm3 3.80-5.20 N HEMOGLOBIN (test code = HGB) 13.7 gm/dL 12.0-16.0 N HEMATOCRIT (test code = HCT) 41.8 % 36.0-48.0 N MEAN CELL VOLUME (test code = MCV) 85.0 UM3 82.0-99.0 N MEAN CELL HGB (test code = MCH) 27.8 UUG 25.5-32.5 N MEAN CELL HGB CONCETRATION (test code = MCHC) 32.8 gm/dL 29.0-35.5 N RED CELL DISTRIBUTION WIDTH (test code = RDW) 13.6 % 11.5-15.0 N RED CELL DISTRIBUTION WIDTH SD (test code = RDW-SD) 42.3 fL 34.8-50.2 N PLATELET COUNT (test code = PLT) 251 K/mm3 150-400 N MEAN PLATELET VOLUME (test c ode = MPV) 9.7 fl 7.4-10.4 N NEUTROPHIL % (test code = NT%) 62.4 % 49.0-76.0 N IMMATURE GRANULOCYTE % (test code = IG%) 0.2 % 0.0-0.4 N LYMPHOCYTE % (test code = LY%) 29.4 % 23.0-38.0 N MONOCYTE % (test code = MO%) 5.5 % 1.0-10.0 N EOSINOPHIL % (test code = EO%) 1.8 % 1.0-5.0 N BASOPHIL % (test code = BA%) 0.7 % 0.0-1.0 N NUCLEATED RBC % (test code = NRBC%) 0.0 % 0.0-0.1 N NEUTROPHIL # (test code = NT#) 3.7 K/mm3 2.4-6.3 N IMMATURE GRANULOCYTE # (test code = IG#) 0.01 x10 3/uL 0.00-0.07 N LYMPHOCYTE # (test code = LY#) 1.8 K/mm3 1.2-4.0 N MONOCYTE # (test code = MO#) 0.3 K/mm3 0.0-0.6 N EOSINOPHIL # (test code = EO#) 0.1 K/MM3 0.0-0.7 N BASOPHIL # (test code = BA#) 0.0 K/mm3 0.0-0.2 N NUCLEATED RBC # (test code = NRBC#) 0.00 X10 3uL 0.00-0.01 N POCT GLUCOSE (AUTOMATED)2023-09-05 16:26:21* Test Item Value Reference Range Interpretation Comme nts POCT GLU (test code = 1955511549) 369 mg/dL 70-110 H Lab Interpretation (test cod e = 32711-3) Abnormal [facility] 12:53:30* Test Item Value Reference Range Interpretation Comme nts POCT GLU (test code = 5253703803) 249 mg/dL 70-110 H Lab Interpretation (test cod e = 22074-6) Abnormal [facility] [id number] 09:29:01* Test Item Value Reference Range Interpretation Comme [facility] HCV Ab (test code = 99944-3) Positive HCV Semi-Quantitative (test code = 84869-9) 34.40 MARLENE (test code = MARLENE) Positive for HCV antibody. This specimen has been reflexed to Hepatitis C Virus (HCV) by Quantitative NAAT and submitted to the Microbiology laboratory. ?A report will be issued by that laboratory. ?If any questions, contact the Clinical Chemistry Director contract writer at [phone]. [facility]2023-[facility]-05 08:56:17* Test Item Value Reference Range Interpretation Comme [facility] POCT GLU (test code = 9518678715) 477 mg/dL 70-110 HH Lab Interpretation (test cod e = 50325-1) Abnormal [facility] Ag-Ab with [id number] 08:45:54* Test Item Value Reference Range Interpretation Comme [facility] HIV Semi-quantitative (test code = 19866-2) 0.09 Negative MARLENE (test code = MARLENE) Non-reactive for HIV-1 antigen and HIV-1/HIV-2 antibodies. ?No laboratory evidence of HIV infection. ?Repeat in 2-4 weeks if acute HIV infection is suspected. [facility] Antibody (IgM & IgG)2023-09-05 07:43:40* Test Item Value Reference Range Interpretation Comme [facility] HBC (test code = 4766049248) Reactive HBC Semi-Quantitative (test code = 3899762400) 0.04 [facility]eville[facility]cosylated Hemoglobin (A1C)2023-09-05 06:46:24* Test Item Value Reference Range Interpretation Comme [facility] HGB A1C (test code = 4548-4) 12.6 % 4.0-5.7 H MARLENE (test code = MARLENE) Reference RangesNormal: <5.7%Prediabetes: 5.7 - 6.4%Diabetes: > 6.5% Lab Interpretation (test code = 99561-9) Abnormal [facility]eville[facility] Surface [id number] 06:35:06* Test Item Value Reference Range Interpretation Comme [facility] HBsAB (test code = 5410505130) Positive HBsAb Semi-Quantitative (test code = 8783177654) 158.00 mIU/mL MARLENE (test code = MARLENE) Interpretation: ?Hepatitis B Surface Antibody ? Negative - Patient is considered to be not immune to infection with HBV. ? ? Positive - Anti-HBs detected at greater than or equal to 12 mIU/mL. ?Patient is considered to be immune to infection with HBV. ? [facility] Surface [id number] 06:16:47 * Test Item Value Reference Range Interpretation Comme nts HBsAg Semi-Quantitative (landon t code = 5195-3) 0.12 Negative [facility]eville[facility]roponin [id number] 05:58:24* Test Item Value Reference Range Interpretation Comme nts TROPONIN I (test code = 8149802407) 0.003 ng/mL <=0.034 MARLENE (test code = MARLENE) Reference (Normal) Range (defined by the 99th percentile reference limit): <= 0.034 ng/mL Note: Cardiac troponin begins to rise 3-4 hours after the onset of ischemia. Repeat in 4-6 hours if the sample was drawn within 3-4 hours of the onset of the symptom and found normal. Diagnosis of myocardial injury is made with acute changes in cTn concentrations with at least one serial sample above the 99th percentile upper reference limit (URL), taken together with the patient's clinical presentation. Biotin has been reported to cause a negative bias, interpret results relative to patient's use of biotin. Lab Interpretation (test code = 35135-5) Normal [facility]Total Cholesterol, Triglycerides, HDL)2023-09-05 05:45:01* Test Item Value Reference Range Interpretation Comme nts CHOL (test code = 7876807992) 172 mg/dL 120-200 HDL (test code = 7687167304) 35 mg/dL >=50 L HDLC RATIO (test code = 8061010580) 4.9 <=4.5 H TRIG (test code = 6125077031) 152 mg/dL 30-170 LDL CHOL (test code = 29240-3) 107 mg/dL <=160 VLDL (test code = 5215866538) 30 mg/dL 5-60 Lab Interpretation (test cod e = 38511-7) Abnormal [facility]2023-09-05 03:08:29* Test Item Value Reference Range Interpretation Comme nts POCT GLU (test code = 9613728397) 365 mg/dL 70-110 H Lab Interpretation (test cod e = 49716-0) Abnormal [facility] ULTR[facility] BREAST COMPLETE [id number] 21:32:07Examination:BI ULTRASOUND BREAST COMPLETE LEFT History:Patient is 52 year old and is seen for: Patient presents with redness and swelling in left breast for 1 week, which she states is possibly secondary to an insect bite or excoriation of the skin. ?Patient reported prior history of breast abscessstatus post antibiotic therapy on the contralateral breast. ?No known family history of breast cancer. Comparisons : None available Physical exam: On physical examination there is swelling and redness of the upper central breast Findings: LeftA survey ultrasound was performed. ?At the 12 o'clock position, 6 cm from the nipple, moderate soft tissue edema is demonstrated, along with a central hypoechoic area measuring 28 mm (image 2), possibly representing phlegmon formation. ?However no definite, drainable fluid collection is identified. ?Associated increased vascularity is noted on Doppler exam. ?The axilla is within normal limits. Impression: Left: Sonographic evidence of mastitis as described above, without definite, drainable fluid collection. ?A short interval follow-up ultrasound in 6 to 8 weeks, following appropriate therapy, is recommended to document resolution. Recommendation:Short interval follow-up ultrasound - LeftAnnual mammographic follow-up - Bilateral BI-RADS Category:Left 2 [facility] (NA, K, CL, CO2, GLUCOSE, BUN, CREATININE, CA)2023-09-04 17:13:30* Test Item Value Reference Range Interpretation Comme nts NA (test code = 2085895585) 136 mmol/L 135-145 K (test code = 1715700410) 3.8 mmol/L 3.5-5.0 CL (test code = 5830879101) 99 mmol/L 98-108 CO2 TOTAL (test code = 2324096555) 27 mmol/L 23-31 AGAP (test code = 8933940249) 10 2-16 BUN (test code = 1846833220) 7 mg/dL 7-23 GLUCOSE (test code = 4896958360) 413 mg/dL 70-110 H CREATININE (test code = 2160-0) 0.68 mg/dL 0.50-1.04 CALCIUM (test code = 9885003433) 8.8 mg/dL 8.6-10.6 eGFR (test code = 06073-8) 106.3 mL/min/1.73m2 CKD-EPI eGFR (2020). Assuming creatinine has been stable day-to-day for at least three months, the eGFR indicates Category G1 (>= 90 mL/min/1.73 m2) Lab Interpretation (test code = 68075-8) Abnormal [facility] with [id number] 17:09:30* Test Item Value Reference Range Interpretation Comme nts WBC (test code = 6690-2) 5.14 4.30-11.10 RBC (test code = 789-8) 5.05 3.93-5.25 HGB (test code = 718-7) 14.1 g/dL 11.6-15.0 HCT (test code = 4544-3) 42.6 % 35.7-45.2 MCV (test code = 787-2) 84.4 fL 80.6-95.5 MCH (test code = 785-6) 27.9 pg 25.9-32.8 MCHC (test code = 786-4) 33.1 g/dL 31.6-35.1 RDW-SD (test code = 79676-5) 41.1 fL 39.0-49.9 RDW-CV (test code = 788-0) 13.4 % 12.0-15.5 PLT (test code = 777-3) 218 166-358 MPV (test code = 33225-3) 9.9 fL 9.5-12.9 NRBC/100 WBC (test code = 5871354753) 0.0 0.0-10.0 NRBC x10^3 (test code = 4459086489) See_Comment [Automated messa ge] The system which generated this result transmitted reference range: 10*3/?L. The reference range was not used to interpret this result as normal/abnormal. GRAN MAT (NEUT) % (test code = 770-8) 65.6 % IMM GRAN % (test code = 4915764332) 0.20 % LYMPH % (test code = 736-9) 24.7 % MONO % (test code = 5905-5) 6.4 % EOS % (test code = 713-8) 2.7 % BASO % (test code = 706-2) 0.4 % GRAN MAT x10^3(ANC) (test code = 4701977441) 3.37 10*3/uL 1.88-7.09 IMM GRAN x10^3 (test code = 7347560781) 0.00-0.06 LYMPH x10^3 (test code = 731-0) 1.27 10*3/uL 1.32-3.29 L MONO x10^3 (test code = 742-7) 0.33 10*3/uL 0.33-0.92 EOS x10^3 (test code = 711-2) 0.14 10*3/uL 0.03-0.39 BASO x10^3 (test code = 704-7) 0.01-0.07 Lab Interpretation (test code = 59603-2) Abnormal [facility] GLUCOSE (AUTOMATED)2023-09-04 15:58:30* Test Item Value Reference Range Interpretation Comme nts POCT GLU (test code = 5359956687) 457 mg/dL 70-110 HH Lab Interpretation (test cod e = 06946-8) Abnormal [facility] GLUCOSE(AGE >30DAYS)2023-09-04 15:58:00* Test Item Value Reference Range Interpretation Comme nts POCT Glu (age>30days) (test code = 3342) 457 mg/dL 70-110 A Lab Interpretation (test cod e = 09889-6) Abnormal [facility]2024-[facility]-10 18:05:00* Test Item Value Reference Range Interpretation Comme nts GLUBED (test code = GLUBED) 234 mg/dL 70-110 H [id number] 08:42:00* Test Item Value Reference Range Interpretation Comme nts GLUBED (test code = GLUBED) 210 mg/dL 70-110 H HGB [id number] 08:08:00* Test Item Value Reference Range Interpretation Comme nts HEMOGLOBIN (test code = HGB) 12.4 gm/dL 12.0-16.0 N HEMATOCRIT (test code = HCT) 37.8 % 36.0-48.0 N [id number] 06:04:00* Test Item Value Reference Range Interpretation Comme nts GLUBED (test code = GLUBED) 248 mg/dL 70-110 H BASIC METABOLIC [id number] 02:50:00* Test Item Value Reference Range Interpretation Comme nts SODIUM (test code = NA) 132 mmol/l 134.0-147.0 L POTASSIUM (test code = K) 4.0 mmol/L 3.6-5.2 N CHLORIDE (test code = CL) 99 mmol/l 98.0-107.0 N CARBON DIOXIDE (test code = CO2) 25.7 mmol/l 21.0-33.0 N ANION GAP (test code = GAP) 11.3 0-20 N GLUCOSE (test code = GLU) 248 mg/dl 70.0-110.0 H BLOOD UREA NITROGEN (test code = BUN) 15 mg/dl 7.0-18.0 N GLOMERULAR FILTRATION RATE (test code = GFR) 71 mL/min The Glomerular Filtration Rate is a calculated parameterbased on serum Creatinine, patient age and sex. GFR valuesless than 60 mL/min/1.73 square meters are indicative ofChronic Kidney Disease. Values less than 15 mL/min/1.73square meters indicate Kidney failure. The calculation forGFR is based on the CKD-EPI (2020) calculation. This formulais race indifferent and is the recommended formula for GFRby the National Kidney Foundation for Adults.The GFR will not calculate if the sex is unknown or if thepatient's age is <18 years. CREATININE (test code = CREAT) 0.97 mg/dL 0.60-1.30 N ESTIMATED CREAT CLEARANCE (test code = ECRCL) 60 mL/min >30 CALCIUM (test code = CA) 8.5 mg/dl 8.0-10.5 N [id number] 02:50:00* Test Item Value Reference Range Interpretation Comme nts MAGNESIUM (test code = MAG) 1.9 mg/dl 1.8-2.4 N CBC W/AUTO [id number] 02:33:00* Test Item Value Reference Range Interpretation Comme nts WHITE BLOOD CELL (test code = WBC) 7.1 K/mm3 4.5-11.0 N RED BLOOD CELL (test code = RBC) 4.41 M/mm3 3.80-5.20 N HEMOGLOBIN (test code = HGB) 12.5 gm/dL 12.0-16.0 N HEMATOCRIT (test code = HCT) 36.9 % 36.0-48.0 N MEAN CELL VOLUME (test code = MCV) 83.7 UM3 82.0-99.0 N MEAN CELL HGB (test code = MCH) 28.3 UUG 25.5-32.5 N MEAN CELL HGB CONCETRATION (test code = MCHC) 33.9 gm/dL 29.0-35.5 N RED CELL DISTRIBUTION WIDTH (test code = RDW) 12.9 % 11.5-15.0 N RED CELL DISTRIBUTION WIDTH SD (test code = RDW-SD) 39.0 fL 34.8-50.2 N PLATELET COUNT (test code = PLT) 276 K/mm3 150-400 N MEAN PLATELET VOLUME (test c ode = MPV) 9.8 fl 7.4-10.4 N NEUTROPHIL % (test code = NT%) 51.5 % 49.0-76.0 N IMMATURE GRANULOCYTE % (test code = IG%) 0.3 % 0.0-0.4 N LYMPHOCYTE % (test code = LY%) 38.8 % 23.0-38.0 H MONOCYTE % (test code = MO%) 5.9 % 1.0-10.0 N EOSINOPHIL % (test code = EO%) 2.8 % 1.0-5.0 N BASOPHIL % (test code = BA%) 0.7 % 0.0-1.0 N NUCLEATED RBC % (test code = NRBC%) 0.0 % 0.0-0.1 N NEUTROPHIL # (test code = NT#) 3.7 K/mm3 2.4-6.3 N IMMATURE GRANULOCYTE # (test code = IG#) 0.02 x10 3/uL 0.00-0.07 N LYMPHOCYTE # (test code = LY#) 2.8 K/mm3 1.2-4.0 N MONOCYTE # (test code = MO#) 0.4 K/mm3 0.0-0.6 N EOSINOPHIL # (test code = EO#) 0.2 K/MM3 0.0-0.7 N BASOPHIL # (test code = BA#) 0.1 K/mm3 0.0-0.2 N NUCLEATED RBC # (test code = NRBC#) 0.00 X10 3uL 0.00-0.01 N [id number] 00:09:00* Test Item Value Reference Range Interpretation Comme nts GLUBED (test code = GLUBED) 340 mg/dL 70-110 H TROP-I HIGH [id number] 18:29:00* Test Item Value Reference Range Interpretation Comme nts TROP-I HIGH SENSITIVITY (test code = TROPIHS) 4 ng/L 0-51 N CAUTION: U nits of the current TROPI-HS test methodology(ng/L) differ from the prior test methodology (ng/mL) by afactor of 1000. 99th Percentile: Females: 0 - 51 ng/L Males: 0 - 76 ng/LThese results were obtained using Cle[employer] TnIHreagent. Results from different methodologies should not becompared to one another as quantitative results may vary bymethod. HGB [id number] 18:13:00* Test Item Value Reference Range Interpretation Comme nts HEMOGLOBIN (test code = HGB) 13.8 gm/dL 12.0-16.0 N HEMATOCRIT (test code = HCT) 40.9 % 36.0-48.0 N [id number] 18:09:00* Test Item Value Reference Range Interpretation Comme nts GLUBED (test code = GLUBED) 478 mg/dL 70-110 H TROP-I HIGH [id number] 16:36:00* Test Item Value Reference Range Interpretation Comme nts TROP-I HIGH SENSITIVITY (test code = TROPIHS) <4 ng/L 0-51 N CAUTION: Units o f the current TROPI-HS test methodology(ng/L) differ from the prior test methodology (ng/mL) by afactor of 1000. 99th Percentile: Females: 0 - 51 ng/L Males: 0 - 76 ng/LThese results were obtained using [employer] TnIHreagent. Results from different methodologies should not becompared to one another as quantitative results may vary bymethod. - CTA CHEST FOR [id number] 15:09:00 [facility] 1970 Sex: F FAX: Rossi Quinones [place]: St: REG Name: RACHEL SALDAÑA [facility] : 1970 Age/S: 52/F [address] [facility] Unit: [id number] Loc: E.ERS[address] [place], [place] Phys: [place] [address] Acct: [id number] Dis Date: Status: REG ER PHONE #: [phone] Exam Date: 08/07/2023 6529 FAX #: [phone]: elev dimer EXAMS: CPT CODE: [id number] [place] [address] CTA chest, contrast-enhanced (pulmonary embolism protocol }.Reconstructed sagittal and coronal images, MIP images. HISTORY: Elevated d-dimer, chest pain, pulmonary embolism. All studies use automated exposure control, iterative reconstruction technique, and/or adjustment of mA and/or kV according to patient size for optimum radiation dose reduction. Following the intravenous administration of 100 mL of Isovue-370, a study theof the chest was performed on pulmonary embolism protocol. Reconstructed CT angiogram images are included. Good filling of aorta is seen with normal diameter. No evidence of aneurysm or dissection. Pulmonary artery segments also fill appropriately with no emboli supported. Heart size appears to be intact with no pericardial fluid. No pleural effusions are seen, either. No evidence of hilar or mediastinal adenopathy can be seen. Chest wall structures are symmetric. Lung window settings do not show any bulla formation, mass, infiltrates or pneumothorax. Reformatted MIP images do not show emboli. Aortic appearance is intact. IMPRESSION: No findings to support pulmonary emboli. Normal aortic perfusion. No acute abnormality in the chest. Location: 9 at 1509 Reported and signed by: Mary Jane Elaine MD PAGE 1 Signed Report (CONTINUED) FAX: Rossi Garcia [place]: St: REG Name: RACHEL SALDAÑA [facility] : 1970 Age/S: 52/F [address] [facility] Unit: [id number] Loc: [address] Phys: [place] [address] Acct: [id number] Dis Date: Status: REG ER PHONE #: [phone] Exam Date: 08/07/2023 1434 FAX #: [phone] Reason: elev dimer EXAMS: CPT CODE: [id number] [place] [id number] (Continued) CC: Rossi Garcia MD Technologist: LICO ALCARAZ; NIKITA MATHEWSILLO; AMAN LEWIS TrnscrdDt/Tm: 08/07/2023 (9740) [email or web address] Orig Print D/T: S: 08/07/2023 (1512 PAGE 2 Signed ReportBASIC METABOLIC PANEL 2023-08-07 14:08:00* Test Item Value Reference Range Interpretation Comme nts SODIUM (test code = NA) 129 mmol/l 134.0-147.0 L POTASSIUM (test code = K) 4.6 mmol/L 3.6-5.2 N CHLORIDE (test code = CL) 95 mmol/l 98.0-107.0 L CARBON DIOXIDE (test code = CO2) 24.6 mmol/l 21.0-33.0 N ANION GAP (test code = GAP) 14.0 0-20 N GLUCOSE (test code = GLU) 471 mg/dl 70.0-110.0 HH BLOOD UREA NITROGEN (test code = BUN) 18 mg/dl 7.0-18.0 N GLOMERULAR FILTRATION RATE (test code = GFR) 59 mL/min The Glomerular Filtration Rate is a calculated parameterbased on serum Creatinine, patient age and sex. GFR valuesless than 60 mL/min/1.73 square meters are indicative ofChronic Kidney Disease. Values less than 15 mL/min/1.73square meters indicate Kidney failure. The calculation forGFR is based on the CKD-EPI (2020) calculation. This formulais race indifferent and is the recommended formula for GFRby the National Kidney Foundation for Adults.The GFR will not calculate if the sex is unknown or if thepatient's age is <18 years. CREATININE (test code = CREAT) 1.14 mg/dL 0.60-1.30 N ESTIMATED CREAT CLEARANCE (test code = ECRCL) 51 mL/min >30 CALCIUM (test code = CA) 9.1 mg/dl 8.0-10.5 N TROP-I HIGH [id number] 14:08:00* Test Item Value Reference Range Interpretation Comme nts TROP-I HIGH SENSITIVITY (test code = TROPIHS) <4 ng/L 0-51 N CAUTION: Units o f the current TROPI-HS test methodology(ng/L) differ from the prior test methodology (ng/mL) by afactor of 1000. 99th Percentile: Females: 0 - 51 ng/L Males: 0 - 76 ng/LThese results were obtained using Clew TnWizRocket Technologiesrestickappst. Results from different methodologies should not becompared to one another as quantitative results may vary bymethod. D-DIMER/[id number] 13:57:00* Test Item Value Reference Range Interpretation Comme nts D-DIMER/FSP (test code = DDIMER) 653 ng/mLFEU 0-500 HH Thrombosis and/o r Pulmonary Embolism and the clinicalcut-off value for exclusion (500 ng/mL FEU) of theseconditions is validated by the capacity manager of the method. A negative D-Dimer result when combined with a clinicalassessment of low pretest probability has been shown to havea high negative predictive value of DVT or PE. D-Dimer values >500 ng/mL FEU are not diagnostic for DVT,PE, or DIC without other confirmatory tests and appropriateclinical evaluations. CBC W/AUTO [id number] 13:52:00* Test Item Value Reference Range Interpretation Comme nts WHITE BLOOD CELL (test code = WBC) 8.3 K/mm3 4.5-11.0 N RED BLOOD CELL (test code = RBC) 5.08 M/mm3 3.80-5.20 N HEMOGLOBIN (test code = HGB) 14.0 gm/dL 12.0-16.0 N HEMATOCRIT (test code = HCT) 42.7 % 36.0-48.0 N MEAN CELL VOLUME (test code = MCV) 84.1 UM3 82.0-99.0 N MEAN CELL HGB (test code = MCH) 27.6 UUG 25.5-32.5 N MEAN CELL HGB CONCETRATION (test code = MCHC) 32.8 gm/dL 29.0-35.5 N RED CELL DISTRIBUTION WIDTH (test code = RDW) 13.0 % 11.5-15.0 N RED CELL DISTRIBUTION WIDTH SD (test code = RDW-SD) 39.3 fL 34.8-50.2 N PLATELET COUNT (test code = PLT) 254 K/mm3 150-400 N MEAN PLATELET VOLUME (test c ode = MPV) 9.8 fl 7.4-10.4 N NEUTROPHIL % (test code = NT%) 69.5 % 49.0-76.0 N IMMATURE GRANULOCYTE % (test code = IG%) 0.2 % 0.0-0.4 N LYMPHOCYTE % (test code = LY%) 23.6 % 23.0-38.0 N MONOCYTE % (test code = MO%) 4.0 % 1.0-10.0 N EOSINOPHIL % (test code = EO%) 2.2 % 1.0-5.0 N BASOPHIL % (test code = BA%) 0.5 % 0.0-1.0 N NUCLEATED RBC % (test code = NRBC%) 0.0 % 0.0-0.1 N NEUTROPHIL # (test code = NT#) 5.8 K/mm3 2.4-6.3 N IMMATURE GRANULOCYTE # (test code = IG#) 0.02 x10 3/uL 0.00-0.07 N LYMPHOCYTE # (test code = LY#) 2.0 K/mm3 1.2-4.0 N MONOCYTE # (test code = MO#) 0.3 K/mm3 0.0-0.6 N EOSINOPHIL # (test code = EO#) 0.2 K/MM3 0.0-0.7 N BASOPHIL # (test code = BA#) 0.0 K/mm3 0.0-0.2 N NUCLEATED RBC # (test code = NRBC#) 0.00 X10 3uL 0.00-0.01 N - XR CHEST 1 [id number] 13:23:00 [facility] 1970 Sex: F FAX: Rossi Quinones [place]: St: [facility] 1970 Age/S: 52/F [address] [facility] Unit #: [id number] Loc: [address] Phys: [place] [address] Acct: [id number] Dis Date: Status: REG ER PHONE #: [phone] Exam Date: 08/07/2023 1309 FAX #: [phone] Reason: Chest Pain EXAMS: CPT CODE: [id number] XR CHEST 1 V 85200 Dictation location: C4. CHEST, FRONTAL VIEW HISTORY: Chest Pain COMPARISON: None. FINDINGS: The lungs are clear without consolidation. No pleural effusion or pneumothorax. The heart size is normal. The bones are unremarkable. IMPRESSION: No evidence of acute cardiopulmonary disease. at 1323 Reported and signed by: Elliot Tello M.D. CC: Rossi Garcia MD Technologist: MIGUEL ANGEL PANDA Trnmnrd Date/Time/By: 08/07/2023 (1323) : By: [id number] 1 Signed Report FAX: Rossi Garcia [place]: St: [facility] 1970 Age/S: 52/F [address] [facility] Unit #: [id number] Loc: E.ERS2 [place], [place]: [place] [address] Acct: [id number] Dis Date: Status: REG ER PHONE #: [phone] Exam Date: 08/07/2023 1309 FAX #: [phone] Reason: Chest Pain EXAMS: CPT CODE: [id number] XR CHEST 1 V 23550 (Continued) Orig Print D/T: S: 08/07/2023 (1327) PAGE 2 Signed Report [id number] 12:28:00* Test Item Value Reference Range Interpretation Comme nts GLUBED (test code = GLUBED) 105 mg/dL 70-110 N [id number] 09:06:00* Test Item Value Reference Range Interpretation Comme nts GLUBED (test code = GLUBED) 200 mg/dL 70-110 H [id number] 23:51:00* Test Item Value Reference Range Interpretation Comme nts GLUBED (test code = GLUBED) 366 mg/dL 70-110 H [id number] 13:40:00* Test Item Value Reference Range Interpretation Comme nts GLUBED (test code = GLUBED) 176 mg/dL 70-110 H BASIC METABOLIC [id number] 07:28:00* Test Item Value Reference Range Interpretation Comme nts SODIUM (test code = NA) 134 mmol/l 134.0-147.0 N POTASSIUM (test code = K) 4.0 mmol/L 3.6-5.2 N CHLORIDE (test code = CL) 102 mmol/l 98.0-107.0 N CARBON DIOXIDE (test code = CO2) 25.8 mmol/l 21.0-33.0 N ANION GAP (test code = GAP) 10.2 0-20 N GLUCOSE (test code = GLU) 298 mg/dl 70.0-110.0 H BLOOD UREA NITROGEN (test code = BUN) 22 mg/dl 7.0-18.0 H GLOMERULAR FILTRATION RATE (test code = GFR) 69 mL/min The Glomerular Filtration Rate is a calculated parameterbased on serum Creatinine, patient age and sex. GFR valuesless than 60 mL/min/1.73 square meters are indicative ofChronic Kidney Disease. Values less than 15 mL/min/1.73square meters indicate Kidney failure. The calculation forGFR is based on the CKD-EPI (202) calculation. This formulais race indifferent and is the recommended formula for GFRby the National Kidney Foundation for Adults.The GFR will not calculate if the sex is unknown or if thepatient's age is <18 years. CREATININE (test code = CREAT) 0.99 mg/dL 0.60-1.30 N ESTIMATED CREAT CLEARANCE (test code = ECRCL) 54 mL/min >30 CALCIUM (test code = CA) 8.0 mg/dl 8.0-10.5 N [id number] 07:28:00* Test Item Value Reference Range Interpretation Comme nts PHOSPHOROUS (test code = PHOS) 3.8 mg/dl 2.5-4.9 N [id number] 07:28:00* Test Item Value Reference Range Interpretation Comme nts MAGNESIUM (test code = MAG) 1.7 mg/dl 1.8-2.4 L CBC W/AUTO [id number] 06:18:00* Test Item Value Reference Range Interpretation Comme nts WHITE BLOOD CELL (test code = WBC) 6.5 K/mm3 4.5-11.0 N RED BLOOD CELL (test code = RBC) 4.17 M/mm3 3.80-5.20 N HEMOGLOBIN (test code = HGB) 11.7 gm/dL 12.0-16.0 L HEMATOCRIT (test code = HCT) 36.0 % 36.0-48.0 N MEAN CELL VOLUME (test code = MCV) 86.3 UM3 82.0-99.0 N MEAN CELL HGB (test code = MCH) 28.1 UUG 25.5-32.5 N MEAN CELL HGB CONCETRATION (test code = MCHC) 32.5 gm/dL 29.0-35.5 N RED CELL DISTRIBUTION WIDTH (test code = RDW) 12.7 % 11.5-15.0 N RED CELL DISTRIBUTION WIDTH SD (test code = RDW-SD) 40.1 fL 34.8-50.2 N PLATELET COUNT (test code = PLT) 229 K/mm3 150-400 N MEAN PLATELET VOLUME (test c ode = MPV) 9.8 fl 7.4-10.4 N NEUTROPHIL % (test code = NT%) 44.6 % 49.0-76.0 L IMMATURE GRANULOCYTE % (test code = IG%) 0.2 % 0.0-0.4 N LYMPHOCYTE % (test code = LY%) 44.3 % 23.0-38.0 H MONOCYTE % (test code = MO%) 7.4 % 1.0-10.0 N EOSINOPHIL % (test code = EO%) 2.9 % 1.0-5.0 N BASOPHIL % (test code = BA%) 0.6 % 0.0-1.0 N NUCLEATED RBC % (test code = NRBC%) 0.0 % 0.0-0.1 N NEUTROPHIL # (test code = NT#) 2.9 K/mm3 2.4-6.3 N IMMATURE GRANULOCYTE # (test code = IG#) 0.01 x10 3/uL 0.00-0.07 N LYMPHOCYTE # (test code = LY#) 2.9 K/mm3 1.2-4.0 N MONOCYTE # (test code = MO#) 0.5 K/mm3 0.0-0.6 N EOSINOPHIL # (test code = EO#) 0.2 K/MM3 0.0-0.7 N BASOPHIL # (test code = BA#) 0.0 K/mm3 0.0-0.2 N NUCLEATED RBC # (test code = NRBC#) 0.00 X10 3uL 0.00-0.01 N [id number] 05:44:00* Test Item Value Reference Range Interpretation Comme nts GLUBED (test code = GLUBED) 287 mg/dL 70-110 H [id number] 01:57:00* Test Item Value Reference Range Interpretation Comme nts GLUBED (test code = GLUBED) 471 mg/dL 70-110 H [id number] 20:47:00* Test Item Value Reference Range Interpretation Comme nts GLUBED (test code = GLUBED) 314 mg/dL 70-110 H [id number] 18:56:00* Test Item Value Reference Range Interpretation Comme nts HGBA1C% (test code = HGBA1C%) 12.6 %A1C 4.8-6.0 H ESTIMATED AVERAGE GLUCOSE (t est code = EAG) 315 MG/DL [id number] 18:36:00* Test Item Value Reference Range Interpretation Comme nts GLUBED (test code = GLUBED) 249 mg/dL 70-110 H BASIC METABOLIC [id number] 17:17:00* Test Item Value Reference Range Interpretation Comme nts SODIUM (test code = NA) 136 mmol/l 134.0-147.0 N POTASSIUM (test code = K) 4.8 mmol/L 3.6-5.2 N CHLORIDE (test code = CL) 99 mmol/l 98.0-107.0 N CARBON DIOXIDE (test code = CO2) 30.7 mmol/l 21.0-33.0 N ANION GAP (test code = GAP) 11.1 0-20 N GLUCOSE (test code = GLU) 383 mg/dl 70.0-110.0 H BLOOD UREA NITROGEN (test code = BUN) 24 mg/dl 7.0-18.0 H GLOMERULAR FILTRATION RATE (test code = GFR) 61 mL/min The Glomerular Filtration Rate is a calculated parameterbased on serum Creatinine, patient age and sex. GFR valuesless than 60 mL/min/1.73 square meters are indicative ofChronic Kidney Disease. Values less than 15 mL/min/1.73square meters indicate Kidney failure. The calculation forGFR is based on the CKD-EPI (2020) calculation. This formulais race indifferent and is the recommended formula for GFRby the National Kidney Foundation for Adults.The GFR will not calculate if the sex is unknown or if thepatient's age is <18 years. CREATININE (test code = CREAT) 1.11 mg/dL 0.60-1.30 N ESTIMATED CREAT CLEARANCE (test code = ECRCL) 48 mL/min >30 CALCIUM (test code = CA) 9.0 mg/dl 8.0-10.5 N HEPATIC FUNCTION PANEL [id number] 17:17:00* Test Item Value Reference Range Interpretation Comme nts TOTAL PROTEIN (test code = PROT) 8.3 gm/dL 6.4-8.2 H ALBUMIN (test code = ALB) 3.5 gm/dl 3.2-4.7 N BILIRUBIN TOTAL (test code = BILT) 0.6 mg/dl 0.0-1.0 N BILIRUBIN DIRECT (test code = BILD) 0.1 mg/dl 0.0-0.3 N SGOT/AST (test code = AST) 20 Units/L 15-37 N SGPT/ALT (test code = ALT) 23 Units/L 12.0-78.0 N ALKALINE PHOSPHATASE TOTAL ( test code = ALKP) 105 Units/L 50.0-136.0 N [id number] 17:17:00* Test Item Value Reference Range Interpretation Comme nts MAGNESIUM (test code = MAG) 1.9 mg/dl 1.8-2.4 N TROP-I HIGH [id number] 17:17:00* Test Item Value Reference Range Interpretation Comme nts TROP-I HIGH SENSITIVITY (test code = TROPIHS) 5 ng/L 0-51 N CAUTION: U nits of the current TROPI-HS test methodology(ng/L) differ from the prior test methodology (ng/mL) by afactor of 1000. 99th Percentile: Females: 0 - 51 ng/L Males: 0 - 76 ng/LThese results were obtained using Clew TnIHreagent. Results from different methodologies should not becompared to one another as quantitative results may vary bymethod. UA RFLX MICR CULT IF [id number] 17:15:00* Test Item Value Reference Range Interpretation Comme nts UA COLOR (test code = COLU) YELLOW UA APPEARANCE (test code = APPU) CLEAR UA GLUCOSE DIPSTICK (test code = DGLUU) 1000 mg/dl mg/dl NORMAL A UA BILIRUBIN DIPSTICK (test code = BILU) NEGATIVE mg/dL NEGATIVE UA KETONE DIPSTICK (test code = KETU) 5 mg/dl mg/dl NEGATIVE A UA SPECIFIC GRAVITY (test code = SGU) 1.015 1.000-1.030 UA BLOOD DIPSTICK (test code = EHSAN) 10 Mark/micL Mark/micL NEGATIVE A UA PH DIPSTICK (test code = JOSH) 6.5 5.0-9.0 UA PROTEIN DIPSTICK (test code = PROU) NEGATIVE mg/dl NEGATIVE UA UROBILINIOGEN DIPSTICK (test code = URO) NORMAL mg/dl NORMAL UA NITRITE DIPSTICK (test code = CHRISTI) NEGATIVE NEGATIVE UA LEUKOCYTE ESTERASE DIPSTICK (test code = LEUU) 100 Saray/micL Saray/micL NEGATIVE A UA WBC (test code = WBCU) 10-20 WBC/HPF NONE A UA RBC (test code = RBCU) 0-3 RBC/HPF 0-3 UA EPITHELIAL CELLS (test code = EPIU) 5-10 EPI/HPF 0-3 A UA BACTERIA (test code = BACU) FEW NONE UA RENAL CELLS (test code = ADAM) FEW Indication for culture: Suprapubic PainSpecimen Description: CLEAN CATCHPOCT GLUCOSE (AUTOMATED)2023-02-18 20:59:04* Test Item Value Reference Range Interpretation Comme nts POCT GLU (test code = 7202640719) 231 mg/dL 70-110 H Lab Interpretation (test cod e = 42279-4) [facility] 19:00:04* Test Item Value Reference Range Interpretation Comme nts POCT GLU (test code = 4563241980) 290 mg/dL 70-110 H Lab Interpretation (test cod e = 97641-3) [facility]-18 17:18:26* Test Item Value Reference Range Interpretation Comme nts POCT GLU (test code = 7323937456) 402 mg/dL 70-110 H Lab Interpretation (test cod e = 86944-9) [facility]normal [facility] [id number] 16:09:44* Test Item Value Reference Range Interpretation Comme nts BOH (test code = 2602609887) 0.3 mmol/L MARLENE (test code = MARLENE) Normal Ranges: ? ? Nonfasting ? Less than 0.1 mmol/L ? ? Overnight Fast ? ? ? Less than 0.4 mmol/L ? ? Fasting (1-2 weeks) ?6-8 mmol/L Test developed and characteristics determined by [facility] Laboratory Services. [facility]. METABOLIC PANEL (06160)2023-02-18 15:25:23* Test Item Value Reference Range Interpretation Comme nts NA (test code = 9859899381) 131 mmol/L 135-145 L K (test code = 9007546522) 4.6 mmol/L 3.5-5.0 CL (test code = 5803583068) 99 mmol/L 98-108 CO2 TOTAL (test code = 4426141667) 21 mmol/L 23-31 L AGAP (test code = 0910878438) 11 2-16 BUN (test code = 0584435642) 16 mg/dL 7-23 GLUCOSE (test code = 6928531882) 547 mg/dL 70-110 HH CREATININE (test code = 2718673277) 0.69 mg/dL 0.50-1.04 TOTAL BILI (test code = 0127940622) 0.7 mg/dL 0.1-1.1 CALCIUM (test code = 7257132424) 9.1 mg/dL 8.6-10.6 T PROTEIN (test code = 0702418616) 7.9 g/dL 6.3-8.2 ALBUMIN (test code = 1849311270) 4.4 g/dL 3.5-5.0 ALK PHOS (test code = 9462710650) 99 U/L 34-122 ALTv (test code = 1742-6) 26 U/L 5-35 AST(SGOT) (test code = 4263910635) 25 U/L 13-40 eGFR (test code = 0369915851) 90.1 mL/min/1.73m2 MARLENE (test code = MARLENE) Association of Glomerular Filtration Rate (GFR) and Staging of Kidney Disease* + --+ --+ ------+| GFR (mL/min/1.73 m2) ?| With Kidney Damage ?| ?Without Kidney Damage+ --------+ --------+ +| ?>90 ?| ?Stage one ?| ? Normal ?+ ---+ ---+ -------+| ?60-89 ?| ?Stage two ?| ? Decreased GFR ? + --+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 TABLET) 1,000 MG BID MEALS PO Insulin Human Lispro (HumaLOG 100 UNITS/ML) 10 UNITS C MEALS SUBQ Diphenhydramine HCl (BENADRYL) 25 MG Q6H PRN PRN PO Sucralfate (CARAFATE) 1 GM AC HS PO Fluconazole (DIFLUCAN) 150 MG ONCE ONE PO (DC) Insulin Human Lispro (HumaLOG 100 UNITS/ML) 0 Q4HR SUBQ Insulin Human NPH (HumuLIN N) 30 UNIT BID MEALS SUBQ Metformin HCl (metFORMIN 500 MG TABLET) 1,000 MG BID MEALS PO (DC) Metoclopramide HCl (REGLAN) 10 MG Q8H PRN PRN IV Acetaminophen (TYLENOL 325MG) 650 MG Q4H PRN PRN PO Al Hydrox/Mg Hydrox/Simethicone (MYLANTA) 30 ML TID PRN PRN PO Docusate Sodium (COLACE) 100 MG DAILY PRN PRN PO Hydralazine HCl (APRESOLINE) 10 MG Q6H PRN PRN IV Hydrocodone Bitart/Acetaminophen (NORCO 5/325 TABLET) 1 TAB Q6H PRN PRN PO Insulin Human Lispro (HumaLOG 100 UNITS/ML) SLIDING SCALE AC HS SUBQ (CAN) Ondansetron HCl (ZOFRAN 2ML) 4 MG Q4H PRN PRN IV Pantoprazole (PROTONIX 40MG INJ) 40 MG DAILY IV Sodium Chloride (SODIUM CHLORIDE 0.9% 10ML) 10 ML ASDIR PRN IV Temazepam (RESTORIL) 15 MG BEDTIME PRN PRN PO Sodium Chloride (SODIUM CHLORIDE 0.9%) 1,000 ML .[id number] IV Dextrose/Water (DEXTROSE 10%) 125 ML ASDIR PRN IV (CKD) Dextrose/Water (DEXTROSE 10%) 250 ML ASDIR PRN IV (CKD) Glucagon (GLUCAGON) 1 MG ASDIR PRN IM Hydralazine HCl (APRESOLINE) 10 MG Q2H PRN PRN IV Morphine Sulfate (morphine SULFATE) 4 MG Q4H PRN PRN IV (DC) Ondansetron HCl (ZOFRAN 2ML) 4 MG Q6H PRN PRN IV Iopamidol (ISOVUE-370 100ML) 0 .STK-MED ONE .ROUTE (DC) Iopamidol (ISOVUE-370 100ML) 0 .STK-MED ONE .ROUTE (DC) Morphine Sulfate (morphine SULFATE) 4 MG X1ED STA IV (DC) Ondansetron HCl (ZOFRAN 2ML) 4 MG X1ED STA IV (DC) Aspirin (ASPIRIN 81MG CHEW) 324 MG X1ED STA PO (DC) Physical Exam General appearance: alert, awake, oriented Head/Eyes: atraumatic ENT: moist mucosal membranes Neck: no JVD Cardiovascular: CV assessment: regular rate and rhythm Respiratory: no distress Lower extremity: LE assessment: no edema Results Findings/Data: Laboratory Tests 08/07 08/07 08/07 08/07 08/06 0826 0523 0135 0129 2137 Chemistry Sodium (134.0 - 147.0 mmol/l) 132 L Potassium (3.6 - 5.2 mmol/L) 4.0 Chloride (98.0 - 107.0 mmol/l) 99 Carbon Dioxide (21.0 - 33.0 mmol/l) 25.7 Anion Gap (0 - 20) 11.3 BUN (7.0 - 18.0 mg/dl) 15 Creatinine (0.60 - 1.30 mg/dL) 0.97 Estimated Creat Clear (>30 mL/min) 60 Glomerular Filtr Rate (mL/min) 71 Glucose (70.0 - 110.0 mg/dl) 248 H POC Glucose (70 - 110 mg/dL) 210 H 231 H 248 H 340 H Calcium (8.0 - 10.5 mg/dl) 8.5 Magnesium (1.8 - 2.4 mg/dl) 1.9 08/06 08/06 08/06 08/06 1745 1720 1605 1309 Chemistry Sodium (134.0 - 147.0 mmol/l) 129 L Potassium (3.6 - 5.2 mmol/L) 4.6 Chloride (98.0 - 107.0 mmol/l) 95 L Carbon Dioxide (21.0 - 33.0 mmol/l) 24.6 Anion Gap (0 - 20) 14.0 BUN (7.0 - 18.0 mg/dl) 18 Creatinine (0.60 - 1.30 mg/dL) 1.14 Estimated Creat Clear (>30 mL/min) 51 Glomerular Filtr Rate (mL/min) 59 Glucose (70.0 - 110.0 mg/dl) 471 *H POC Glucose (70 - 110 mg/dL) 478 H Calcium (8.0 - 10.5 mg/dl) 9.1 Troponin I High Sens (0 - 51 ng/L) 4 <4 <4 Laboratory Tests 08/06 1309 Coagulation D-Dimer (0 - 500 ng/mLFEU) 653 *H Laboratory Tests 08/07 08/07 08/06 08/06 0741 0129 1745 1309 Hematology WBC (4.5 - 11.0 K/mm3) 7.1 8.3 RBC (3.80 - 5.20 M/mm3) 4.41 5.08 Hgb (12.0 - 16.0 gm/dL) 12.4 12.5 13.8 14.0 Hct (36.0 - 48.0 %) 37.8 36.9 40.9 42.7 MCV (82.0 - 99.0 UM3) 83.7 84.1 MCH (25.5 - 32.5 UUG) 28.3 27.6 MCHC (29.0 - 35.5 gm/dL) 33.9 32.8 RDW (11.5 - 15.0 %) 12.9 13.0 Plt Count (150 - 400 K/mm3) 276 254 MPV (7.4 - 10.4 fl) 9.8 9.8 Neut % (Auto) (49.0 - 76.0 %) 51.5 69.5 Lymph % (Auto) (23.0 - 38.0 %) 38.8 H 23.6 [place] % (Auto) (1.0 - 10.0 %) 5.9 4.0 Eos % (Auto) (1.0 - 5.0 %) 2.8 2.2 Baso % (Auto) (0.0 - 1.0 %) 0.7 0.5 Neut # (Auto) (2.4 - 6.3 K/mm3) 3.7 5.8 Lymph # (Auto) (1.2 - 4.0 K/mm3) 2.8 2.0 [place] # (Auto) (0.0 - 0.6 K/mm3) 0.4 0.3 Eos # (Auto) (0.0 - 0.7 K/MM3) 0.2 0.2 Baso # (Auto) (0.0 - 0.2 K/mm3) 0.1 0.0 Absolute Nucleated RBC (0.00 - 0.01 X10 3uL) 0.00 0.00 Immature Gran % (0.0 - 0.4 %) 0.3 0.2 Nucleated RBC % (0.0 - 0.1 %) 0.0 0.0 Immature Gran # (0.00 - 0.07 x10 3/uL) 0.02 0.02 Laboratory Tests 08/07 0129 Chemistry Magnesium (1.8 - 2.4 mg/dl) 1.9 Radiology Data: Recent Impressions: RADIOLOGY - XR CHEST 1 V 08/06 1309 Report Impression - Status: SIGNED Entered: 08/07/2023 1327 IMPRESSION: No evidence of acute cardiopulmonary disease. Impression By: [email or web address] - Elliot Tello M.D. CAT SCAN - CTA CHEST FOR PE 08/06 1432 Report Impression - Status: SIGNED Entered: 08/07/2023 1512 IMPRESSION: No findings to support pulmonary emboli. Normal aortic perfusion. No acute abnormality in the chest. Location: U19 Impression By: [email or web address] - Mary Jane Elaine MD Diagnosis, Assessment Plan Free Text DxA P Notes Free Text DxA P Notes: 1. Chest pain -ACS ruled out with negative trop x3 -EKG w/ no ischemic changes. -Likely GI related. -Offered echo but patient refused. -Pt has multiple risk factors for CAD including age, smoker, DM. Pt refused cardiac work up. 2. GERD -per primary 3. DM per primary Thank you for the referral Will sign off and be available prn. POC discussed w/ DR. Jones. at 1422 at 1502 RPT #:[id number] END OF REPORT [facility] 2023-08-07 16:21:00 [facility] ([facility]) Hospitalist History Physical REPORT#:[id number] REPORT STATUS: Signed REPORT INITIALIZATION DATE:08/07/23 TIME: 162 PATIENT: RACHEL SALDAÑA UNIT #: [id number] ROOM/BED: [place] [address] : 72 AGE: 52 SEX: F ATTEND: Melody Loaiza MD ADM AUTHOR: Armaan Pires MD REPT SERVICE DT/TIME: 08/07/23 1621 * ALL edits or amendments must be made on the electronic/computer document * History of Present Illness HPI Chief complaint: chest pain PCP: PCP: No Primary or Family Physician HPI: Pt is a 52 yo homeless F with PMH of uncontrolled DM2, smoker, GERD. Pt c/o 1 wk of severe reflux sx and constant retrosternal chest pain. Pain is continuous, sensitive to palpation over xiphoid region, and becomes intolerable with laying down. Pain is nonexertional and does not radiate. In ER, trop neg. Pt severely hyperglycemic without AGAP. Says has not been able to afford insulin or any other medication since last discharge. Was recently discharged to [facility], but says is now staying with a friend. History Past Medical Surgical Hx Additional medical history: DIABETES Social History Smoking status for patients 13 years old or older: Current every day smoker Medication/Allergy-Vaccine Hx Allergies: Coded Allergies: onion (Severe, SWELLING 08/07/23) amoxicillin (From AUGMENTIN) (Mild, HIVES 07/25/23) clavulanic acid (From AUGMENTIN) (Mild, HIVES 07/25/23) Review of Systems All systems rev neg: except as noted OBJECTIVE VS/I O: Vital Signs Date Temp Pulse Resp B/P B/P Mean Pulse Ox FiO2 08/06 98.1 94 17 137/62 87 97-99 Last Documented: Result Date Time Pulse Ox 97 08/06 1313 B/P 137/62 08/06 1251 B/P Mean 87 08/06 1251 O2 Delivery Room air 08/06 1251 Temp 98.1 08/06 1251 Pulse 94 08/06 1251 Resp 17 08/06 1251 Patient Weight and BMI Weight (kg): 100.000 BMI: 37.8 Medications: Active Meds + DC'd Last 24 Hrs Insulin Human Lispro (HumaLOG 100 UNITS/ML) 0 Q4HR SUBQ Insulin Human Lispro (HumaLOG 100 UNITS/ML) SLIDING SCALE AC HS SUBQ (CAN) Sodium Chloride (SODIUM CHLORIDE 0.9%) 1,000 ML .[id number] IV Dextrose/Water (DEXTROSE 10%) 125 ML ASDIR PRN IV (CKD) Dextrose/Water (DEXTROSE 10%) 250 ML ASDIR PRN IV (CKD) Glucagon (GLUCAGON) 1 MG ASDIR PRN IM Hydralazine HCl (APRESOLINE) 10 MG Q2H PRN PRN IV Morphine Sulfate (morphine SULFATE) 4 MG Q4H PRN PRN IV (DC) Ondansetron HCl (ZOFRAN 2ML) 4 MG Q6H PRN PRN IV Iopamidol (ISOVUE-370 100ML) 0 .STK-MED ONE .ROUTE (DC) Iopamidol (ISOVUE-370 100ML) 0 .STK-MED ONE .ROUTE (DC) Morphine Sulfate (morphine SULFATE) 4 MG X1ED STA IV (DC) Ondansetron HCl (ZOFRAN 2ML) 4 MG X1ED STA IV (DC) Aspirin (ASPIRIN 81MG CHEW) 324 MG X1ED STA PO (DC) General appearance: alert, awake, oriented Head/Eyes: EOMI Cardiovascular: normal heart sounds, regular rate rhythm, Tenderness to palpation at lower sternum Respiratory: aerating well Abdomen: soft Extremities: moves all Musculoskeletal: normal inspection Neuro/ADMINISTRATIVE SERVICES COORDINATOR: alert, oriented X 3, CNII-XII intact Results Findings/Data: Laboratory Tests: 08/06 1309 Chemistry Sodium (134.0 - 147.0 mmol/l) 129 L Potassium (3.6 - 5.2 mmol/L) 4.6 Chloride (98.0 - 107.0 mmol/l) 95 L Carbon Dioxide (21.0 - 33.0 mmol/l) 24.6 Anion Gap (0 - 20) 14.0 BUN (7.0 - 18.0 mg/dl) 18 Creatinine (0.60 - 1.30 mg/dL) 1.14 Estimated Creat Clear (>30 mL/min) 51 Glomerular Filtr Rate (mL/min) 59 Glucose (70.0 - 110.0 mg/dl) 471 *H Calcium (8.0 - 10.5 mg/dl) 9.1 Troponin I High Sens (0 - 51 ng/L) <4 Coagulation D-Dimer (0 - 500 ng/mLFEU) 653 *H Hematology WBC (4.5 - 11.0 K/mm3) 8.3 RBC (3.80 - 5.20 M/mm3) 5.08 Hgb (12.0 - 16.0 gm/dL) 14.0 Hct (36.0 - 48.0 %) 42.7 MCV (82.0 - 99.0 UM3) 84.1 MCH (25.5 - 32.5 UUG) 27.6 MCHC (29.0 - 35.5 gm/dL) 32.8 RDW (11.5 - 15.0 %) 13.0 Plt Count (150 - 400 K/mm3) 254 MPV (7.4 - 10.4 fl) 9.8 Neut % (Auto) (49.0 - 76.0 %) 69.5 Lymph % (Auto) (23.0 - 38.0 %) 23.6 [place] % (Auto) (1.0 - 10.0 %) 4.0 Eos % (Auto) (1.0 - 5.0 %) 2.2 Baso % (Auto) (0.0 - 1.0 %) 0.5 Neut # (Auto) (2.4 - 6.3 K/mm3) 5.8 Lymph # (Auto) (1.2 - 4.0 K/mm3) 2.0 [place] # (Auto) (0.0 - 0.6 K/mm3) 0.3 Eos # (Auto) (0.0 - 0.7 K/MM3) 0.2 Baso # (Auto) (0.0 - 0.2 K/mm3) 0.0 Absolute Nucleated RBC (0.00 - 0.01 X10 3uL) 0.00 Immature Gran % (0.0 - 0.4 %) 0.2 Nucleated RBC % (0.0 - 0.1 %) 0.0 Immature Gran # (0.00 - 0.07 x10 3/uL) 0.02 Laboratory Tests 08/07/23 1309: [Embedded Image Not Available] Radiology data: Recent Impressions: RADIOLOGY - XR CHEST 1 V 08/06 1309 Report Impression - Status: SIGNED Entered: 08/07/2023 1327 IMPRESSION: No evidence of acute cardiopulmonary disease. Impression By: [email or web address] - Elliot Tello M.D. CAT SCAN - CTA CHEST FOR PE 08/06 1432 Report Impression - Status: SIGNED Entered: 08/07/2023 1512 IMPRESSION: No findings to support pulmonary emboli. Normal aortic perfusion. No acute abnormality in the chest. Location: 9 Impression By: [email or web address] - Mary Jane Elaine MD Diagnosis, Assessment Plan Free Text A P: Chest Pain, c/w Esophagitis GERD, uncontrolled Hyperglycemia, severe DM2, uncontrolled Obesity Plan: Cards consulted, low suspicion cardiac but will r/o ACS with serial trop IV PPI, sucralfate, prn antiemetics with promotility component Resume metformin and insulin regimen, SSI at 1710 RPT #:[id number] END OF REPORT [facility] 2023-08-07 12:52:00 [facility] ([facility]) EMERGENCY PROVIDER REPORT REPORT#:[id number] REPORT STATUS: Signed DATE:08/07/23 TIME: 1252 PATIENT: RACHEL SALDAÑA UNIT #: [id number] ROOM/BED: [place] [address] AGE: 52 SEX: F PCP PHYS: No Primary or Family Physician SERVICE AUTHOR: Rossi Garcia MD * ALL edits or amendments must be made on the electronic/computer document * HPI-Chest Pain 40 and Over Free Text HPI Notes Free Text HPI Notes 52 year old F with chest pain with onset 1 week. sharp, constant,worse with inspiration and no alleviating factors. Substernal smokes cigarettes 1/2 ppd Hx GERD General Initial Greet Date/Time 08/07/23 1250 Presentation Chief Complaint Chest pain Sudden in Onset? No )( Migration/Movement None Risk-Chest Pain 40 and Over Risk Stratification )( Coronary Artery Disease Diabetes mellitus )( Thoracic Aortic Dissection No risk factors )( Pulmonary Embolism No risk factors )( HEART for MACE )( HEART for MACE Response Value History Low index of suspicion 0 ECG Interpretation Normal ECG 0 Age Age 45 - 65 1 Risk Factors for CAD 1-2 CAD risk factors 1 Troponin < or = to NL troponin 0 Total 2 HEART Score Reference Resource material only. Click 'Cancel' button and information will not be inserted into or become part of the medical record Risk factors considered for determining a patient's HEART Score include: hypercholesterolemia (hyperlipidemia), hypertension, diabetes mellitus, cigarette smoking, positive family history and obesity. Major Adverse Cardiac Events (MACE) include: acute myocardial infarction, ischaemic stroke, coronary arterial occlusion and . References: Xiang BROWN, Flora MONTILLA, et al. Chest pain in the emergency room: value of the HEART score. [facility] Heart J. 2008 [place]:16(6):191-6. PubMed PMID: [id number]; PubMed Central PMCID: [id number]. Flora MONTILLA, Xiang BROWN, et al. A prospective validation of the HEART score for chest pain patients at the emergency department. Int J Cardiol. 2013 Jan 3:168(3):2153 -8. Doi: 10.1016/j.ijcard.2013.01.255 . Epub 2012Jul 04. PubMed PMID: [id number]. Review of Systems ROS Statements All systems rev neg except as marked. Basic Review of Systems Basic ROS EYES: No redness, ENT: No sore throat, : No dysuria/frequency, HEM: No bleeding/bruising Focused Review of Systems Cardiovascular Reports: Chest pain. Past Medical History - Adult Stated Complaint CHEST PAIN Allergies Coded Allergies: amoxicillin (From AUGMENTIN) (Mild, HIVES 07/25/23) clavulanic acid (From AUGMENTIN) (Mild, HIVES 07/25/23) Home Medications Active Scripts CEFDINIR (OMNICEF) 300 MG PO Q12H CEFDINIR (OMNICEF) 300 MG PO Q12H #10 CAPS Prov: 07/27/23 metFORMIN (GLUCOPHAGE) 1,000 MG PO BID metFORMIN (GLUCOPHAGE) 1,000 MG PO BID #60 TABS Prov: 07/27/23 INSULIN NPH HUMAN RECOM (HumuLIN N) 30 UNITS SUBQ BID INSULIN NPH HUMAN RECOM (HumuLIN N) 30 UNITS SUBQ BID #10 ML Prov: 07/27/23 INSULIN REGULAR (HumuLIN R) 10 UNITS SUBQ AC INSULIN REGULAR (HumuLIN R) 10 UNITS SUBQ AC #10 ML Prov: 07/27/23 INSULIN REGULAR (HumuLIN R) 0 UNITS SUBQ AC HS INSULIN REGULAR (HumuLIN R) 0 UNITS SUBQ AC HS #10 ML Prov: 07/27/23 DME - GLUCOSE METER (GLUCOSE METER) EACH MISC ASDIR DME - GLUCOSE METER (GLUCOSE METER) EACH MISC ASDIR #1 Prov: 07/27/23 DME - GLUCOSE STRIPS (GLUCOSE STRIPS) EACH MISC DAILY DME - GLUCOSE STRIPS (GLUCOSE STRIPS) EACH MISC DAILY #100 Prov: 07/27/23 DME - GLUCOSE LANCETS (GLUCOSE LANCETS) EACH MISC DAILY DME - GLUCOSE LANCETS (GLUCOSE LANCETS) EACH MISC DAILY #100 Prov: 07/27/23 Additional Medical History DIABETES Physical Exam Vital Signs Vital Signs First Documented: Result Date Time Pulse Ox 99 04 1251 B/P 137/62 04/ 1251 B/P Mean 87 04/ 1251 O2 Delivery Room air 04/ 1251 Temp 36.7 04/ 1251 Pulse 94 04/ 1251 Resp 17 04/ 1251 Last Documented: Result Date Time Pulse Ox 97 04/ 1313 B/P 137/62 08/06 1251 B/P Mean 87 04/ 1251 O2 Delivery Room air 04 1251 Temp 36.7 04/ 1251 Pulse 94 04/ 1251 Resp 17 08/06 1251 Review of Vital Signs Reviewed Basic Physical Exam Basic PE HEAD: Atraumatic/NC, EYES: PERRL, conj clear, ENT: Membranes moist, NECK: Supple, EXT: No gross abnormality, SKIN: No rashes, warm/dry, NEURO: alert oriented, NEURO: gross movement NL, PSYCH: NL thought content Focused PE General/Const General/Const Awake, Alert, No acute distress, Well appearing, Well developed , Well hydrated, Well nourished, Cooperative, Not toxic appearing Resp/Chest Respiratory/Chest Atraumatic, Breath sounds NL, Breath sounds = bilat, No respiratory distress, No rales, No rhonchi, No wheezing, No retractions, No stridor, No chest tenderness, No chest wall deformity, No crepitus Cardiovascular Cardiovascular Heart rate NL, Regular rhythm, Heart sounds NL, No gallop, No murmurs, No rubs, Cap refill not delayed, Peripheral circulation NL, Pulses = bilaterally, No gross BP differential Abdomen/GI Abdomen/GI Atraumatic, Soft, Non-tender, McBurney's non-tender, No guarding, No rebound, BS normoactive, No distention, No hernia, No palpable mass, No pulsatile mass Interpretation Diagnostics Lab Results Interpretation Considerations Independ review imaging Results Laboratory Tests 08/07/23 1309: [Embedded Image Not Available] Laboratory Tests: 08/06 1308 Chemistry Sodium (134.0 - 147.0 mmol/l) 129 L Potassium (3.6 - 5.2 mmol/L) 4.6 Chloride (98.0 - 107.0 mmol/l) 95 L Carbon Dioxide (21.0 - 33.0 mmol/l) 24.6 Anion Gap (0 - 20) 14.0 BUN (7.0 - 18.0 mg/dl) 18 Creatinine (0.60 - 1.30 mg/dL) 1.14 Estimated Creat Clear (>30 mL/min) 51 Glomerular Filtr Rate (mL/min) 59 Glucose (70.0 - 110.0 mg/dl) 471 *H Calcium (8.0 - 10.5 mg/dl) 9.1 Troponin I High Sens (0 - 51 ng/L) <4 Coagulation D-Dimer (0 - 500 ng/mLFEU) 653 *H Hematology WBC (4.5 - 11.0 K/mm3) 8.3 RBC (3.80 - 5.20 M/mm3) 5.08 Hgb (12.0 - 16.0 gm/dL) 14.0 Hct (36.0 - 48.0 %) 42.7 MCV (82.0 - 99.0 UM3) 84.1 MCH (25.5 - 32.5 UUG) 27.6 MCHC (29.0 - 35.5 gm/dL) 32.8 RDW (11.5 - 15.0 %) 13.0 Plt Count (150 - 400 K/mm3) 254 MPV (7.4 - 10.4 fl) 9.8 Neut % (Auto) (49.0 - 76.0 %) 69.5 Lymph % (Auto) (23.0 - 38.0 %) 23.6 [place] % (Auto) (1.0 - 10.0 %) 4.0 Eos % (Auto) (1.0 - 5.0 %) 2.2 Baso % (Auto) (0.0 - 1.0 %) 0.5 Neut # (Auto) (2.4 - 6.3 K/mm3) 5.8 Lymph # (Auto) (1.2 - 4.0 K/mm3) 2.0 [place] # (Auto) (0.0 - 0.6 K/mm3) 0.3 Eos # (Auto) (0.0 - 0.7 K/MM3) 0.2 Baso # (Auto) (0.0 - 0.2 K/mm3) 0.0 Absolute Nucleated RBC (0.00 - 0.01 X10 3uL) 0.00 Immature Gran % (0.0 - 0.4 %) 0.2 Nucleated RBC % (0.0 - 0.1 %) 0.0 Immature Gran # (0.00 - 0.07 x10 3/uL) 0.02 Recent Impressions: RADIOLOGY - XR CHEST 1 V 08/06 1309 Report Impression - Status: SIGNED Entered: 08/07/2023 1327 IMPRESSION: No evidence of acute cardiopulmonary disease. Impression By: [email or web address] - Elliot Tello M.D. CAT SCAN - CTA CHEST FOR PE 08/06 1432 Report Impression - Status: SIGNED Entered: 08/07/2023 1512 IMPRESSION: No findings to support pulmonary emboli. Normal aortic perfusion. No acute abnormality in the chest. Location: [facility]19 Impression By: [email or web address] - Mary Jane Elaine MD Lab Statement Laboratory studies reviewed and considered in the medical decision-making. Imaging Statement Radiographic studies reviewed and considered in the medical decision-making. Lab Imaging Statement Laboratory radiographic studies reviewed and considered in the medical decision-making. ECG #1 Interpretation Text/Dict Note Time 1301, rate 74, normal sinus rhythm, normal axis, no STEMI, DC 130, QRS 88, QT 394, QTc 437 Re-Evaluation MDM Free Text MDM Notes Additional Text History obtained from others:EMS External notes reviewed:EMS Other medical conditions impacting care:diabetes Tests and images reviewed:ELEVATED DIMER, BLOOD SUGAR Discussions regarding procedures:n/a Discussions regarding high risk medications:morphine Discussions regarding de-escalation of care:n/a Discussions regarding hospitalization, escalation of care, or emergency surgery: ADMIT Home medications reviewed/managed:reviewed [employer] discussions:LORETO LOAIZA Differential diagnosis: ACS, arrhythmia, anemia, pneumonia, pneumothorax, pulmonary embolism, aortic dissection Multiple Diagnosis:chest pain, HYPERGLCYEMIA Review of Social determinants of health:yes ED Course Medication(s) Ordered Medication(s) Ordered: Cardiovascular Drugs Sig/Telma Start time Last Medication Dose Route Stop Time Status Admin Hydralazine HCl 10 MG Q2H PRN PRN 08/06 1530 AC IV 08/07 1430 Central Nervous System Agents Sig/Telma Start time Last Medication Dose Route Stop Time Status Admin Morphine Sulfate 4 MG Q4H PRN PRN 08/06 1530 AC IV 08/07 1430 Morphine Sulfate 4 MG X1ED STA 08/06 1255 DC 08/06 IV 08/06 1256 1339 Aspirin 324 MG X1ED STA 08/06 1252 DC 08/06 PO 08/06 1253 1340 Diagnostic Agents Sig/Telma Start time Last Medication Dose Route Stop Time Status Admin Iopamidol 0 .STK-MED ONE 08/06 1436 DC 08/06 .ROUTE 1439 Iopamidol 0 .STK-MED ONE 08/06 1411 DC 08/06 .ROUTE 1414 Electrolytic, Caloric, And Julian Sig/Telma Start time Last Medication Dose Route Stop Time Status Admin Dextrose/Water 125 ML ASDIR PRN 08/06 1545 CKD IV 08/07 1434 Dextrose/Water 250 ML ASDIR PRN 08/06 1545 CKD IV 08/07 1434 Gastrointestinal Drugs Sig/Telma Start time Last Medication Dose Route Stop Time Status Admin Ondansetron HCl 4 MG Q6H PRN PRN 08/06 1530 AC IV 08/07 1430 Ondansetron HCl 4 MG X1ED STA 08/06 1255 DC 08/06 IV 08/06 1256 1339 Hormones And Synthetic Substit Sig/Telma Start time Last Medication Dose Route Stop Time Status Admin Insulin Human Lispro See Dose AC HS 08/06 1630 AC Insts (1) SUBQ 08/07 1434 Glucagon 1 MG ASDIR PRN 08/06 1545 AC IM 08/07 1434 Dose Instructions: (1)Insulin Human Lispro: SLIDING SCALE Differential Diagnosis )( Differential Diagnosis Acute coronary syndrome, Acute myocardial infarct, Anxiety disorder, Aortic dissection, Aortic stenosis, Asthma exacerbation, Bronchitis, Chest pain, Chest pain, acute, Cholecystitis, Cholelithiasis, Congestive heart failure, Contusion, Costochondritis, Dysrhythmia, Esophageal rupture, Esophagitis, Gastritis, GERD, Gun shot wound chest, Hiatal hernia, Hypertroph cardiomyopathy, Kyara-Snider syndrome, Mitral stenosis, Mitral valve prolapse, Musculoskeletal pain, Myocardial infarction, Myocarditis, Peptic ulcer disease, Pericarditis, Pleurisy, Pneumomediastinum, Pneumonia, Pneumothorax, Pulmonary edema, Pulmonary embolism, Rib fracture, Stab wound chest, Stable angina, Unstable angina Patient Discharge Departure Vital Signs/Condition Vital Signs First Documented: Result Date Time Pulse Ox 99 08/06 1251 B/P 137/62 08/06 1251 B/P Mean 87 08/06 1251 O2 Delivery Room air 08/06 1251 Temp 36.7 08/06 1251 Pulse 94 04/ 1251 Resp 17 08/06 1251 Last Documented: Result Date Time Pulse Ox 97 04 1313 B/P 137/62 08/06 1251 B/P Mean 87 08/06 1251 O2 Delivery Room air 08/06 1251 Temp 36.7 08/06 1251 Pulse 94 04 1251 Resp 17 08/06 1251 All vital signs available at the time of this entry have been reviewed. Condition Stable Clinical Impression Clinical Impression Primary Impression: Chest pain Secondary Impressions: D-dimer, elevated, Hyperglycemia Disposition Decision Hospitalize Hosp Physician Name Melody Loaiza MD Hosp Physician Hospitalist Request Time 1529 Request Date 08/07/23 )( Accepts Hospitalization Yes )( Reason for Hospitalization CHEST PAIN )( Accepted Time 1529 )( Accepted Date 08/07/23 Call Information will see patient, agrees with eval, agrees with plan at 1553 RPT #:[id number] END OF REPORT [facility] 2023-07-27 11:13:00 [facility] ([facility] Hospitalist Discharge Summary REPORT#:[id number] REPORT STATUS: Signed REPORT INITIALIZATION DATE:07/27/23 TIME: 111 PATIENT: RACHEL SALDAÑA UNIT #: [id number] ROOM/BED: [place] [id number] : 72 AGE: 52 SEX: F ATTEND: Melody Loaiza MD ADM AUTHOR: Armaan Pires MD REPT SERVICE DT/TIME: 07/27/23 1113 * ALL edits or amendments must be made on the electronic/computer document * General Information Discharge date: 07/27/23 Discharge diagnosis: see below Hospital course: see below Free Text DxA P Notes Free text DxA P notes: DM2 uncontrolled UTI, growing GBS PCN Allergy Gait Abnl Sciatica 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 Qty = 10 No Refills metFORMIN (GLUCOPHAGE) 1,000 MG TAB 1,000 MILLIGRAM ORAL TWICE DAILY. Qty = 60 No Refills Instructions: TAKE WITH MEALS INSULIN NPH HUMAN RECOM (HumuLIN N) 100 UNIT/ML VIAL 30 UNITS SUBCUTANEOUS TWICE DAILY. Qty = 10 No Refills INSULIN REGULAR (HumuLIN R) 100 UNIT/ML VIAL 10 UNITS SUBCUTANEOUS BEFORE MEALS. Qty = 10 No Refills INSULIN REGULAR (HumuLIN R) 100 UNIT/ML VIAL 0 UNITS SUBCUTANEOUS BEFORE MEALS AND AT BEDTIME. Qty = 10 No Refills Instructions: BG 150-200 give 2 units; BG 200-250 give 4 units; BG 250-300 give 6 units; BG>300 give 8 units Objective VS/I O Last Documented: Result Date Time Pulse Ox 94 07/26 1111 B/P 93/51 07/26 1111 B/P Mean 64.7 07/26 1111 Temp 97.9 07/26 1111 Pulse 74 07/26 1111 Resp 15 07/26 1111 O2 Delivery Room air 07/24 1627 24 hour I O ending at 0700: 07/26 0700 07/25 1900 Intake Total Output Total Balance Patient 105.233 kg Weight Head/Eyes: EOMI Cardiovascular: normal heart sounds, regular rate rhythm Respiratory: aerating well Abdomen: soft Extremities: R foot with partial amputation, scarring Musculoskeletal: normal inspection Neuro/ADMINISTRATIVE SERVICES COORDINATOR: alert, oriented X 3, CNII-XII intact Results Findings/Data: Laboratory Tests: 07/26 07/25 07/25 0716 2337 1329 Chemistry POC Glucose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
[2024-03-12] MEDS ORDERED: IBUPROFEN 400 MG TAB ONE (01:12)
[2024-03-12] MEDS ORDERED: MAGNES/ALUMIN/SIMET 30ML UCUP ONE (01:12)
[2024-03-12] MEDS ORDERED: ACETAMINOPHEN 500 MG TAB ONE (04:45)
[2024-03-12] MEDS ORDERED: FAMOTIDINE 20 MG TAB ONE (04:45)
[2024-03-12] MEDS ORDERED: ONDANSETRON 4 MG (ODT) TAB ONE (04:46)
--- NOTE | 2024-03-12 05:08 | ER ---
Nurse's Notes [facility] Name: Rachel Saldaña Age: 53 yrs Sex: Female : 1970 Arrival Date: 03/12/2024 Time: 00:58 Bed 17 Private MD: Diagnosis: Tension-type headache;Acid Reflux, Uncontrolled Diabetes Presentation: 03/12 01:02 Chief complaint: EMS states: epigastric pain x1 week and headache that started today. cp4 Coronavirus screen: Client denies travel out of the [place] in the last 14 days. At this time, the client does not indicate any symptoms associated with coronavirus-19. Ebola Screen: Patient negative for fever greater than or equal to 101.5 degrees Fahrenheit, and additional compatible Ebola Virus Disease symptoms Patient denies exposure to infectious person. Patient denies travel to an Ebola-affected area in the 21 days before illness onset. No symptoms or risks identified at this time. Initial Sepsis Screen: Does the patient meet any 2 criteria? No. Patient's initial sepsis screen is negative. Does the patient have a suspected source of infection? No. Patient's initial sepsis screen is negative. Risk Assessment: Do you want to hurt yourself or someone else? Patient reports no desire to harm self or others. Onset of symptoms is unknown. 01:02 Method Of Arrival: EMS: [facility] cp4 01:02 Acuity: JESSICA 3 cp4 Triage Assessment: 01:03 General: Appears in no apparent distress. comfortable, Behavior is calm, cooperative, cp4 appropriate for age. Pain: Complains of pain in epigastric area, head Pain does not radiate. Pain currently is 7 out of 10 on a pain scale. EENT: No signs and/or symptoms were reported regarding the EENT system. Neuro: Level of Consciousness is awake, alert, obeys commands, Oriented to person, place, time, situation. Cardiovascular: Denies chest pain, Patient's skin is warm and dry. Respiratory: Airway is patent Respiratory effort is even, unlabored. GI: Reports epigastric pain. : No signs and/or symptoms were reported regarding the genitourinary system. Derm: No signs and/or symptoms reported regarding the dermatologic system. Musculoskeletal: No signs and/or symptoms reported regarding the musculoskeletal system. 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 - Infectious Disease History:: Denies. - Social history:: Smoking status: Patient denies any tobacco usage or history of. - Family history:: not pertinent. Screenin:05 [facility] ED Fall Risk Assessment (Adult) History of falling in the last 3 months, cp4 including since admission No falls in past 3 months (0 pts) Confusion or Disorientation No (0 pts) Intoxicated or Sedated No (0 pts) Impaired Gait No (0 pts) Mobility Assist Device Used No (0 pt) Altered Elimination No (0 pt) Score/Fall Risk Level 0 - 2 = Low Risk Oriented to surroundings, Maintained a safe environment, Assessed \T\ reinforced patient's understanding of fall precautions, Hourly rounding (assess needs \T\ fall precautionary measures) done. Abuse screen: Denies threats or abuse. Nutritional screening: No deficits noted. Tuberculosis screening: No symptoms or risk factors identified. Assessment: 01:05 Reassessment: No changes from previously documented assessment. cp4 02:00 Reassessment: Patient appears in no apparent distress at this time. Patient and/or cp4 family updated on plan of care and expected duration. Pain level reassessed. Patient is alert, oriented x 3, equal unlabored respirations, skin warm/dry/pink. 03:00 Reassessment: Patient appears in no apparent distress at this time. Patient and/or cp4 family updated on plan of care and expected duration. Pain level reassessed. Patient is alert, oriented x 3, equal unlabored respirations, skin warm/dry/pink. Vital Signs: 01:17 BP 105 / 83; Pulse 89; Resp 18; Temp 98.2; Pulse Ox 98% ; Pain 7/10; cp4 02:27 BP 124 / 82; Pulse 84; Resp 18; Pulse Ox 97% ; cp4 03:29 BP 115 / 84; Pulse 82; Resp 18; Pulse Ox 98% ; cp4 05:15 BP 115 / 84; Pulse 84; Resp 18; Pulse Ox 98% ; cp4 01:17 Pain Scale: Adult cp4 [place] Coma Score: 05:45 Eye Response: spontaneous(4). Motor Response: obeys commands(6). Verbal Response: sp4 oriented(5). Total: 15. 05:47 Eye Response: spontaneous(4). Motor Response: obeys commands(6). Verbal Response: sp4 oriented(5). Total: 15. ED Course: 01:00 Patient arrived in ED. rv1 01:01 Kurt Zaman MD is Attending Physician. sp4 01:02 Adrienne Phelps is Primary Nurse. cp4 01:03 Triage completed. cp4 01:03 Arm band placed on right wrist. Patient placed in an exam room, on a stretcher. cp4 01:05 Bed in low position. Call light in reach. Side rails up X 1. cp4 01:05 No provider procedures requiring assistance completed. cp4 05:16 Provided Education on: diabetes. cp4 05:16 Patient did not have IV access during this emergency room visit. cp4 Administered Medications: 01:16 Drug: Alum-Mag Hydroxide-Simeth PO Suspension (200 mg-200 mg-20 mg/5 mL) 30 ml PO once cp4 Route: PO; 02:28 Follow up: Response: No adverse reaction cp4 01:16 Drug: Ibuprofen PO 800 mg PO once Route: PO; cp4 02:27 Follow up: Response: No adverse reaction cp4 04:49 Drug: Acetaminophen PO 1000 mg PO once Route: PO; cp4 05:14 Follow up: Response: No adverse reaction cp4 04:49 Drug: Ondansetron PO 8 mg PO once Route: PO; cp4 05:14 Follow up: Response: No adverse reaction cp4 04:50 Drug: Famotidine PO 20 mg PO once Route: PO; cp4 05:14 Follow up: Response: No adverse reaction cp4 Medication: 01:05 VIS not applicable for this client. cp4 Point of Care Testing: Blood Glucose: 04:42 Blood Glucose: 262 mg/dL; cp4 Ranges: Outcome: 05:08 Discharge ordered by . sp4 05:16 Discharged to home ambulatory, cp4 05:16 Condition: stable 05:16 Discharge instructions given to patient, Instructed on discharge instructions, follow up and referral plans. medication usage, Demonstrated understanding of instructions, follow-up care, medications, Prescriptions given X 2, 05:16 Patient left the ED. cp4 Signatures: Rhea Dow rv1 Kurt Zaman MD MD sp4 Adrienne Phelps cp4
--- NOTE | 2024-03-12 05:08 | EDPHYS ---
Physician Documentation [facility] Name: Rachel Saldaña Age: 53 yrs Sex: Female : 1970 Arrival Date: 03/12/2024 Time: 00:58 Bed 17 Private MD: ED Physician Kurt Zaman HPI: 03/12 01:01 This 53 yrs old Female presents to ER via Unassigned with complaints of sp4 headache . 05:45 53-year-old female presents with EMS from [facility] for complaint of sp4 headache and heartburn. Patient states she has history of diabetes that is currently uncontrolled. . 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 - Infectious Disease History:: Denies. - Social history:: Smoking status: Patient denies any tobacco usage or history of. - Family history:: not pertinent. ROS: 05:45 Constitutional: Negative for fever, chills, and weight loss, positive headache, sp4 positive heartburn 05:45 All other systems are negative, Exam: 05:45 Constitutional: This is a well developed, well nourished patient who is awake, alert, sp4 and in no acute distress. Multiple skin sores . Head/Face: Normocephalic, atraumatic. Eyes: Pupils equal round and reactive to light, extra-ocular motions intact. Lids and lashes normal. Conjunctiva and sclera are not injected. Cornea within normal limits. Periorbital areas with no swelling, redness, or edema. ENT: Nares patent. No nasal discharge, no septal abnormalities noted. Tympanic membranes are normal and external auditory canals are clear. Oropharynx with no redness, swelling, or masses, exudates, or evidence of obstruction, uvula midline. Mucous membranes moist. Neck: Trachea midline, no thyromegaly or masses palpated, and no cervical lymphadenopathy. Supple, full range of motion without nuchal rigidity, or vertebral point tenderness. Chest/axilla: Normal chest wall appearance and motion. Nontender with no deformity. No lesions are appreciated. Cardiovascular: Regular rate and rhythm with a normal S1 and S2. No gallops, murmurs, or rubs. Normal PMI, no JVD. No pulse deficits. Respiratory: Lungs have equal breath sounds bilaterally, clear to auscultation and percussion. No rales, rhonchi or wheezes noted. No increased work of breathing, no retractions or nasal flaring. Abdomen/GI: Soft, with normal bowel sounds. No distension or tympany. No guarding or rebound. No evidence of tenderness throughout. Back: No spinal tenderness. No costovertebral tenderness. Skin: Warm, dry with normal turgor. Normal color with no rashes, multiple excoriations suggesting neurotic excoriations. MS/ Extremity: Pulses equal, no cyanosis. Neurovascular intact. Full, normal range of motion. Neuro: Awake and alert, GCS 15, oriented to person, place, time, and situation. Cranial nerves II-XII grossly intact. Motor strength 5/5 in all extremities. Sensory grossly intact. Psych: Awake, alert, with orientation to person, place and time. Behavior, mood, and affect are within normal limits Vital Signs: 01:17 BP 105 / 83; Pulse 89; Resp 18; Temp 98.2; Pulse Ox 98% ; Pain 7/10; cp4 02:27 BP 124 / 82; Pulse 84; Resp 18; Pulse Ox 97% ; cp4 03:29 BP 115 / 84; Pulse 82; Resp 18; Pulse Ox 98% ; cp4 05:15 BP 115 / 84; Pulse 84; Resp 18; Pulse Ox 98% ; cp4 01:17 Pain Scale: Adult cp4 [place] Coma Score: 05:45 Eye Response: spontaneous(4). Motor Response: obeys commands(6). Verbal Response: sp4 oriented(5). Total: 15. 05:47 Eye Response: spontaneous(4). Motor Response: obeys commands(6). Verbal Response: sp4 oriented(5). Total: 15. MDM: 01:02 Medical Screening Exam initiated sp4 05:47 Differential diagnosis: migraine, sinusitis, tension headache, vasomotor headache. Data sp4 reviewed: vital signs, nurses notes, EMS record, old medical records, lab test result(s). 05:48 ED course: Patient was given medications for acute headache and heartburn. Blood sugar sp4 is 262. Patient stable for discharge from the emergency department. . 03/12 04:54 Order name: Glucose, Ancillary Testing; Complete Time: 05:07 EDPA 03/12 04:35 Order name: Accucheck Blood Glucose; Complete Time: 04:42 sp4 Administered Medications: 01:16 Drug: Alum-Mag Hydroxide-Simeth PO Suspension (200 mg-200 mg-20 mg/5 mL) 30 ml PO once cp4 Route: PO; 02:28 Follow up: Response: No adverse reaction cp4 01:16 Drug: Ibuprofen PO 800 mg PO once Route: PO; cp4 02:27 Follow up: Response: No adverse reaction cp4 04:49 Drug: Acetaminophen PO 1000 mg PO once Route: PO; cp4 05:14 Follow up: Response: No adverse reaction cp4 04:49 Drug: Ondansetron PO 8 mg PO once Route: PO; cp4 05:14 Follow up: Response: No adverse reaction cp4 04:50 Drug: Famotidine PO 20 mg PO once Route: PO; cp4 05:14 Follow up: Response: No adverse reaction cp4 Point of Care Testing: Blood Glucose: 04:42 Blood Glucose: 262 mg/dL; cp4 Ranges: Critical Glucose Levels:Adult <50 mg/dl or >400 mg/dl <40 mg/dl or >180 mg/dl Disposition Summary: 03/12/24 05:08 Discharge Ordered Notes: Location: Home sp4 Problem: new sp4 Symptoms: have improved sp4 Condition: Stable sp4 Diagnosis - Tension-type headache sp4 - Acid Reflux, Uncontrolled Diabetes sp4 Followup: sp4 - With: Private Physician - When: 7 - 10 days - Reason: Recheck today's complaints Discharge Instructions: - Discharge Summary Sheet sp4 - Diabetes Mellitus and Nutrition, Adult sp4 Forms: - Patient Portal Instructions sp4 Prescriptions: - Pepcid 20 mg Oral tablet - take 1 tablet ORAL route every 12 hours for 30 days; 60 tablet; Refills: 0, sp4 Product Selection Permitted - Metformin 1,000 mg Oral tablet - take 1 tablet ORAL route every 12 hours for 30 days with morning and evening sp4 meals; 60 tablet; Refills: 0, Product Selection Permitted Signatures: Kurt Zaman MD MD sp4 Potter, Adrienne cp4
[2024-03-12 05:22] VITALS: TEMP 98.2
[2024-03-12 05:24] VITALS: BP 115/84; O2SAT 98
== END 2024-03-12 05:16 | disposition home or self-care (01) ==
LOC: ER 00:58
DX: G44.209 Tension-type headache, unspecified, not intractable (principal); K21.9 Gastro-esophageal reflux disease without esophagitis; E11.65 Type 2 diabetes mellitus with hyperglycemia
CPT/HCPCS: 82947; Q0162